=== PATIENT | female | born 1950 | race American Indian/Alaskan Native ===

== ENCOUNTER 2016-11-20 09:26 | Outpatient (CLI) | payer MEDICARE ==
--- NOTE | 2016-11-20 12:06 | Mammography Report ---
DIAGNOSTIC RIGHT MAMMOGRAM: HISTORY: Recall for right asymmetry in MLO projection. FINDINGS: A spot compression image in the MLO projection demonstrates disappearance of the previously noted vague asymmetric density with no suspicious findings. Scattered benign calcifications are noted. IMPRESSION: No suspicious findings. BI-RADS CATEGORY: 1 = Negative ACR BI-RADS MAMMOGRAPHIC CODES: 0 = Needs additional imaging evaluation; 1 = Negative; 2 = Benign; 3 = Probably benign; 4 = Suspicious; 5 = Malignant; 6 = Known biopsy-proven malignancy COMMENT: 1. Dense breast tissue, i.e., adenosis, fibrocystic changes, etc., may obscure an underlying neoplasm. 2. Approximately 10% of cancers are not detected with mammography. 3. A negative mammography report should not delay biopsy if a clinically suspicious mass is present. RECOMMENDATION: Annual screening.
== END 2016-11-20 09:27 | disposition home or self-care (01) ==
LOC: SPVWC 09:26
PROVIDERS: ATTEND Family Medicine
DX: R92.1 Mammographic calcification found on diagnostic imaging of breast (principal); R92.8 Other abnormal and inconclusive findings on diagnostic imaging of breast
CPT/HCPCS: G0206-RT

== ENCOUNTER 2017-01-26 21:00 | Emergency (ER) | payer MEDICARE ==
[2017-01-27] MEDS ORDERED: TORADOL IM ONE (02:05)
[2017-01-27] MEDS ORDERED: FLEXERIL PO ONE (02:05)
--- NOTE | 2017-01-27 02:05 | Emergency Department Report ---
HPI - General Chief Complaint: Back Pain/Injury Time Seen by Provider: 01/27/17 01:28 - HPI HPI: Patient is a 66-year-old female who presents to ED complaining of right foot pain times today. She states she was [employer] earlier this afternoon when she sat on the chair and the chair gave out and she fell on her butt. She says she went home and put some heat on her butt and didn't have any relief so she decided coming to the ED .Patient discussed pain as throbbing in nature and localized to her right buttock region. Patient denies fever/chills/nausea/vomiting/abdominal pain/chest pain/any other problems. ED Past Medical Hx - Past Medical History Hx Hypertension: Yes Hx Congestive Heart Failure: No Hx Diabetes: Yes Hx Asthma: Yes Hx COPD: No Additional medical history: sarcoidosis - Social History Smoking Status: Never Smoker Substance Use Type: None - Medications Home Medications: Home Medications Medication Instructions Recorded Confirmed Last Taken Type Citalopram [Celexa] 20 mg PO DAILY 03/10/14 03/10/14 Unknown History Hydrochlorothiazide 25 mg PO DAILY 03/10/14 03/10/14 Unknown History Hydroxychloroquine [Plaquenil] 200 mg PO BID 03/10/14 03/10/14 Unknown History Metoprolol [Lopressor TAB] 50 mg PO DAILY 03/10/14 03/10/14 Unknown History Prednisone [predniSONE ([place]) ER 5 mg PO BID 03/10/14 03/10/14 Unknown History TAB] metFORMIN [Glucophage] 500 mg PO BID 03/10/14 03/10/14 Unknown History Aspirin [Aspirin BABY CHEW TAB] 81 mg PO QDAY #30 tab.chew 03/11/14 Unknown Rx Azithromycin [Zithromax Z-YAMILETH] 250 mg PO DAILY #6 tablet 03/11/14 Unknown Rx Omeprazole Magnesium [Prilosec Otc] 20 mg PO BID #60 tab 03/11/14 Unknown Rx methOCARBAMOL [Robaxin TAB] 500 mg PO BID #12 tab 01/27/17 Unknown Rx traMADol [Ultram 50 MG tab] 50 mg PO TID PRN #24 tablet 01/27/17 Unknown Rx ED Review of Systems ROS: Stated complaint: FALL/LOWER BACK PAIN Other details as noted in HPI Constitutional: denies: chills, fever Eyes: denies: eye pain, eye discharge, vision change ENT: denies: ear pain, throat pain Respiratory: denies: cough, shortness of breath, wheezing Cardiovascular: denies: chest pain, palpitations Endocrine: no symptoms reported Gastrointestinal: denies: abdominal pain, nausea, diarrhea Genitourinary: denies: urgency, dysuria, discharge Musculoskeletal: myalgia (of buttock). denies: back pain, joint swelling, arthralgia Skin: denies: rash, lesions Neurological: denies: headache, weakness, paresthesias Psychiatric: denies: anxiety, depression Hematological/Lymphatic: denies: easy bleeding, easy bruising Physical Exam - Physical Exam Vital Signs: Vital Signs 01/26/17 21:40 Temperature 98.4 F Pulse Rate 94 H Respiratory 18 Rate Blood Pressure 159/83 O2 Sat by Pulse 100 Oximetry Physical Exam: GENERAL: Alert and oriented x3, no apparent distress, Normal Gait, atraumatic. HEAD: Head is normocephalic and a-traumatic. MOUTH:Mouth is well hydrated and without lesions. Patent airways. NECK: Supple. Non edematous, No carotid bruits. No lymphadenopathy or thyromegaly. LUNGS: Symetrical with respiration, No wheezing, no rales or crackles, CTAB. HEART: S1, S2 present, regular rate and rhythm without murmur, no rubs, no gallops. EXTREMITIES/MUSCULOSKELETAL: No cyanosis, clubbing, rash, lesions or edema. Full ROM bilaterally. UE/LE Pulses 2+ bilaterally. LE and UE 5+ strength bilaterally BACK: No spinal tenderness. Tenderness to palpation right maximum gluteus muscle. Patient able to bend and touch her toes. NEUROLOGIC: No focal Deficit, Cranial nerves II through XII are grossly intact. No loss of sensation, N SKIN: Warm and dry, No lesions, No ulceration or induration present. ED Course Vital Signs 01/26/17 21:40 Temperature 98.4 F Pulse Rate 94 H Respiratory 18 Rate Blood Pressure 159/83 O2 Sat by Pulse 100 Oximetry ED Medical Decision Making - Medical Decision Making 66-year-old female presents with right buttock pain secondary to fall. Patient is alert and oriented 3 as no other complaints ED course: Patient received Toradol and Flexeril in the ED. Discussed with patient continues heat application to her right gluteus ramu muscle 3 Times a day. discussed the patient to follow-up with her primary care physician. Discussed the patient take medication as prescribed. Vital signs are stable patient is in no acute or respiratory distress. She verbally states she'll follow-up and follow-up with her primary care. Critical care attestation.: If time is entered above; I have spent that time in minutes in the direct care of this critically ill patient, excluding procedure time. ED Disposition Clinical Impression: Myalgia Fall Qualifiers: Encounter type: initial encounter Qualified Code(s): W19.XXXA - Unspecified fall, initial encounter Disposition: DISCHARGED TO HOME OR SELFCARE Is pt being admited?: No Does the pt Need Aspirin: No Condition: Stable Instructions: Musculoskeletal Pain (ED), Trigger Point Pain (ED), Osteoarthritis (ED) Prescriptions: methOCARBAMOL [Robaxin TAB] 500 mg PO BID #12 tab traMADol [Ultram 50 MG tab] 50 mg PO TID PRN #24 tablet PRN Reason: Pain Referrals: PRIMARY CARE, [Primary Care Provider] - 3-5 Days Forms: Work/School Release Form, Accompanied Note Time of Disposition: 02:21
[2017-01-27 02:33] VITALS: BP 142/89
== END 2017-01-27 02:33 | disposition home or self-care (01) ==
LOC: ED 21:00
DX: M79.1 Myalgia (principal); I10 Essential (primary) hypertension; E11.9 Type 2 diabetes mellitus without complications
CPT/HCPCS: 96372; 99282; J1885

== ENCOUNTER 2019-04-18 12:01 | Emergency (ER) | payer MEDICARE ==
[2019-04-18] MEDS ORDERED: NACL 0.9% 1000 ML 1,000 ML IV ONE ×2 (13:04→14:15)
[2019-04-18] MEDS ORDERED: ZOFRAN IV ONE ×2 (13:04→16:43)
[2019-04-18] MEDS ORDERED: DILAUDID IV ONE ×2 (13:04→17:35)
[2019-04-18] MEDS ORDERED: DUONEB *Not for PRN Use IH ONE (13:05)
--- NOTE | 2019-04-18 13:09 | Emergency Department Report ---
ED N/V/D HPI - General Chief complaint: Weakness Stated complaint: WEAKNESS/GENERAL SICKNESS Time Seen by Provider: 04/18/19 12:42 Source: patient, EMS Mode of arrival: Stretcher Limitations: No Limitations - History of Present Illness Initial comments: 68-year-old female with a past medical history of asthma, diabetes, hypertension, chronic back pain and sarcoidosis presents to the hospital complains of poor by mouth tolerance 1 week due to nausea and vomiting. Patient has been nauseated with repeated episodes of dry heaving for the past week. Symptoms started 2 days after receiving a epidural for chronic back pain. Patient thinks she was injected with steroids. This is her first epidural since 2010. She contacted the doctor who performed his procedure and was told that her symptoms are not due to side effects of this medication. Patient complained of some generalized abdominal pain which has since resolved. She denies diarrhea, fever, dysuria, melena, hematochezia, or hematemesis patient has had a hysterectomy and hernia repair ? Umbilical. She also complains of ongoing chronic lower back pain worse on the right side at this time. No complaints of worsening leg weakness or urinary incontinence. Patient is currently on by mouth steroids prescribed by her doctor. - Related Data Home Medications Medication Instructions Recorded Confirmed Last Taken Citalopram [Celexa] 20 mg PO DAILY 03/10/14 03/10/14 Unknown Hydroxychloroquine [Plaquenil] 200 mg PO BID 03/10/14 03/10/14 Unknown Metoprolol [Lopressor TAB] 50 mg PO DAILY 03/10/14 03/10/14 Unknown Prednisone [predniSONE ([place]) ER 5 mg PO BID 03/10/14 03/10/14 Unknown TAB] hydroCHLOROthiazide 25 mg PO DAILY 03/10/14 03/10/14 Unknown [Hydrochlorothiazide] metFORMIN [Glucophage] 500 mg PO BID 03/10/14 03/10/14 Unknown Previous Rx's Medication Instructions Recorded Last Taken Type Aspirin [Aspirin BABY CHEW TAB] 81 mg PO QDAY #30 tab.chew 03/11/14 Unknown Rx Azithromycin [Zithromax Z-YAMILETH] 250 mg PO DAILY #6 tablet 03/11/14 Unknown Rx Omeprazole Magnesium [Prilosec Otc] 20 mg PO BID #60 tab 03/11/14 Unknown Rx methOCARBAMOL [Robaxin TAB] 500 mg PO BID #12 tab 01/27/17 Unknown Rx traMADol [Ultram 50 MG tab] 50 mg PO TID PRN #24 tablet 01/27/17 Unknown Rx Azithromycin [Zithromax] 250 mg PO QDAY #6 tablet 04/18/19 Unknown Rx Ondansetron [Zofran Odt] 4 mg PO Q8HR PRN #20 tab.rapdis 04/18/19 Unknown Rx Allergies Allergy/AdvReac Type Severity Reaction Status Date / Time No Known Allergies Allergy Unverified 03/10/14 18:37 ED Review of Systems ROS: Stated complaint: WEAKNESS/GENERAL SICKNESS Other details as noted in HPI Comment: All other systems reviewed and negative ED Past Medical Hx - Past Medical History Previous Medical History?: Yes Hx Hypertension: Yes Hx Congestive Heart Failure: No Hx Diabetes: Yes Hx Asthma: Yes Hx COPD: No Additional medical history: sarcoidosis - Surgical History Past Surgical History?: Yes Additional Surgical History: Hysterectomy - Social History Smoking Status: Former Smoker Substance Use Type: None - Medications Home Medications: Home Medications Medication Instructions Recorded Confirmed Last Taken Type Citalopram [Celexa] 20 mg PO DAILY 03/10/14 03/10/14 Unknown History Hydroxychloroquine [Plaquenil] 200 mg PO BID 03/10/14 03/10/14 Unknown History Metoprolol [Lopressor TAB] 50 mg PO DAILY 03/10/14 03/10/14 Unknown History Prednisone [predniSONE ([place]) ER 5 mg PO BID 03/10/14 03/10/14 Unknown History TAB] hydroCHLOROthiazide 25 mg PO DAILY 03/10/14 03/10/14 Unknown History [Hydrochlorothiazide] metFORMIN [Glucophage] 500 mg PO BID 03/10/14 03/10/14 Unknown History Aspirin [Aspirin BABY CHEW TAB] 81 mg PO QDAY #30 tab.chew 03/11/14 Unknown Rx Azithromycin [Zithromax Z-YAMILETH] 250 mg PO DAILY #6 tablet 03/11/14 Unknown Rx Omeprazole Magnesium [Prilosec Otc] 20 mg PO BID #60 tab 03/11/14 Unknown Rx methOCARBAMOL [Robaxin TAB] 500 mg PO BID #12 tab 01/27/17 Unknown Rx traMADol [Ultram 50 MG tab] 50 mg PO TID PRN #24 tablet 01/27/17 Unknown Rx Azithromycin [Zithromax] 250 mg PO QDAY #6 tablet 04/18/19 Unknown Rx Ondansetron [Zofran Odt] 4 mg PO Q8HR PRN #20 tab.rapdis 04/18/19 Unknown Rx ED Physical Exam - General Limitations: No Limitations - Other Other exam information: General: No limitations, patient is alert in no acute distress Head exam: Atraumatic, normocephalic Eyes exam: Normal appearance, pupils equal reactive to light, extraocular movements intact ENT: Moist mucous membrane, normal oropharynx Neck exam: Normal inspection, full range of motion, no meningismus nontender Respiratory exam: Bilateral mild wheezing, no tachypnea or accessory muscle use Cardiovascular: Normal rate and rhythm, normal heart sounds Abdomen: Soft, nondistended, mild generalized abdominal tenderness, increased bowel sounds, with normal bowel sounds, no rebound, or guarding Extremity: Full range of motion normal inspection no deformity Back: Normal Inspection, full range of motion, no tenderness Neurologic: Alert, oriented x3, cranial nerves intact, no motor or sensory deficit Psychiatric: normal affect, normal mood Skin: Warm, dry, intact ED Course Vital Signs 04/18/19 04/18/19 04/18/19 12:26 13:43 13:53 Temperature 98.2 F Pulse Rate 81 Pulse Rate [ 80 88 Anterior Bilateral Throughout] Respiratory 16 Rate Respiratory 12 16 Rate [Anterior Bilateral Throughout] Blood Pressure Blood Pressure 155/69 [Left] O2 Sat by Pulse 93 Oximetry 04/18/19 04/18/19 04/18/19 14:47 16:57 19:00 Temperature Pulse Rate 83 72 88 Pulse Rate [ Anterior Bilateral Throughout] Respiratory 16 16 18 Rate Respiratory Rate [Anterior Bilateral Throughout] Blood Pressure Blood Pressure 134/59 139/71 142/86 [Left] O2 Sat by Pulse 99 97 98 Oximetry 04/18/19 04/18/19 19:40 21:22 Temperature Pulse Rate 88 82 Pulse Rate [ Anterior Bilateral Throughout] Respiratory 18 Rate Respiratory Rate [Anterior Bilateral Throughout] Blood Pressure 142/86 Blood Pressure 128/76 [Left] O2 Sat by Pulse 99 Oximetry ED Medical Decision Making - Lab Data Result diagrams: 04/18/19 13:18 04/18/19 13:18 Lab Results 04/18/19 04/18/19 04/18/19 Range/Units 13:18 13:18 13:18 WBC 8.4 (4.5-11.0) K/mm3 RBC 4.25 (3.65-5.03) M/mm3 Hgb 11.9 (10.1-14.3) gm/dl Hct 36.0 (30.3-42.9) % MCV 85 (79-97) fl MCH 28 (28-32) pg MCHC 33 (30-34) % RDW 19.2 H (13.2-15.2) % Plt Count 213 (140-440) K/mm3 Lymph % (Auto) 12.7 L (13.4-35.0) % [place] % (Auto) 6.9 (0.0-7.3) % Eos % (Auto) 1.1 (0.0-4.3) % Baso % (Auto) 0.5 (0.0-1.8) % Lymph # 1.1 L (1.2-5.4) K/mm3 [place] # 0.6 (0.0-0.8) K/mm3 Eos # 0.1 (0.0-0.4) K/mm3 Baso # 0.0 (0.0-0.1) K/mm3 Seg Neutrophils % 78.8 H (40.0-70.0) % Seg Neutrophils # 6.6 (1.8-7.7) K/mm3 Sodium 143 (137-145) mmol/L Potassium 4.2 (3.6-5.0) mmol/L Chloride 103.3 (98-107) mmol/L Carbon Dioxide 25 (22-30) mmol/L Anion Gap 19 mmol/L BUN 24 H (7-17) mg/dL Creatinine 1.2 (0.7-1.2) mg/dL Estimated GFR 54 ml/min BUN/Creatinine Ratio 20 % Glucose 87 (65-100) mg/dL Calcium 9.5 (8.4-10.2) mg/dL Magnesium 1.50 L (1.7-2.3) mg/dL Troponin T 0.061 H (0.00-0.029) ng/mL Triglycerides 161 H (2-149) mg/dL Cholesterol 142 (50-199) mg/dL LDL Cholesterol Direct 81 (50-130) mg/dL HDL Cholesterol 37 L (40-59) mg/dL Cholesterol/HDL Ratio 3.83 % Lipase (13-60) units/L Urine Color (Yellow) Urine Turbidity (Clear) Urine pH (5.0-7.0) Ur Specific [place] (1.003-1.030) Urine Protein (Negative) mg/dL Urine Glucose (UA) (Negative) mg/dL Urine Ketones (Negative) mg/dL Urine Blood (Negative) Urine Nitrite (Negative) Urine Bilirubin (Negative) Urine Urobilinogen (<2.0) mg/dL Ur Leukocyte Esterase (Negative) Urine WBC (Auto) (0.0-6.0) /HPF Urine RBC (Auto) (0.0-6.0) /HPF U Epithel Cells (Auto) (0-13.0) /HPF Urine Mucus /HPF 04/18/19 04/18/19 04/18/19 Range/Units 13:18 13:24 15:51 WBC (4.5-11.0) K/mm3 RBC (3.65-5.03) M/mm3 Hgb (10.1-14.3) gm/dl Hct (30.3-42.9) % MCV (79-97) fl MCH (28-32) pg MCHC (30-34) % RDW (13.2-15.2) % Plt Count (140-440) K/mm3 Lymph % (Auto) (13.4-35.0) % [place] % (Auto) (0.0-7.3) % Eos % (Auto) (0.0-4.3) % Baso % (Auto) (0.0-1.8) % Lymph # (1.2-5.4) K/mm3 [place] # (0.0-0.8) K/mm3 Eos # (0.0-0.4) K/mm3 Baso # (0.0-0.1) K/mm3 Seg Neutrophils % (40.0-70.0) % Seg Neutrophils # (1.8-7.7) K/mm3 Sodium (137-145) mmol/L Potassium (3.6-5.0) mmol/L Chloride (98-107) mmol/L Carbon Dioxide (22-30) mmol/L Anion Gap mmol/L BUN (7-17) mg/dL Creatinine (0.7-1.2) mg/dL Estimated GFR ml/min BUN/Creatinine Ratio % Glucose (65-100) mg/dL Calcium (8.4-10.2) mg/dL Magnesium (1.7-2.3) mg/dL Troponin T 0.057 H (0.00-0.029) ng/mL Triglycerides (2-149) mg/dL Cholesterol (50-199) mg/dL LDL Cholesterol Direct (50-130) mg/dL HDL Cholesterol (40-59) mg/dL Cholesterol/HDL Ratio % Lipase 119 H (13-60) units/L Urine Color Yellow (Yellow) Urine Turbidity Slightly-cloudy (Clear) Urine pH 5.0 (5.0-7.0) Ur Specific [place] 1.024 (1.003-1.030) Urine Protein 30 mg/dl (Negative) mg/dL Urine Glucose (UA) Neg (Negative) mg/dL Urine Ketones Neg (Negative) mg/dL Urine Blood Neg (Negative) Urine Nitrite Neg (Negative) Urine Bilirubin Neg (Negative) Urine Urobilinogen < 2.0 (<2.0) mg/dL Ur Leukocyte Esterase Neg (Negative) Urine WBC (Auto) 4.0 (0.0-6.0) /HPF Urine RBC (Auto) 4.0 (0.0-6.0) /HPF U Epithel Cells (Auto) 10.0 (0-13.0) /HPF Urine Mucus Few /HPF - EKG Data -: EKG Interpreted by [facility] EKG shows normal: sinus rhythm, axis (qrs 11), QRS complexes (qrsd 86), ST-T waves (lvh with repol) Rate: normal (82) - EKG Data When compared to previous EKG there are: no significant change (03/10/14) - Radiology Data Radiology results: report reviewed PROCEDURE: XR CHEST 1V AP TECHNIQUE: Chest radiograph single view. HISTORY: wheezing COMPARISONS: None . FINDINGS: Single frontal view of the chest was acquired. There is cardiomegaly. The lungs are hyperinflated. There is increased density at the medial right lung base which could represent atelectasis or pneumonia. There is an left medial basilar linear consolidation likely atelectasis. IMPRESSION: Hyperinflation Right medial basilar consolidation atelectasis versus pneumonia PROCEDURE: CT ABDOMEN PELVIS W CON TECHNIQUE: Computerized axial tomography of the abdomen and pelvis was performed after the administration of IV iodinated nonionic contrast. CT DOSE LENGTH PRODUCT: 1480.8 mGycm HISTORY: abd pain, nv COMPARISONS: None . FINDINGS: Visualized lower thorax: Heart is enlarged. Liver: Normal size and attenuation. Spleen: Normal size and attenuation. Gallbladder and biliary system: Mild intrahepatic and extra hepatic biliary ductal dilatation noted within normal limits for patient's stated age. Gallbladder is unremarkable. Pancreas: Normal. Adrenals: Normal. Kidneys: Kidneys enhance symmetrically with contrast. No obstructing stones visualized. No evidence hydronephrosis. Right renal cyst visualized. GI tract: No evidence of bowel dilatation or obstruction. No CT evidence for appendicitis or diverticulitis. Lymph nodes and mesentery: Normal. Vasculature: Normal.. Bladder: Normal. Reproductive organs: Status post hysterectomy. Peritoneum: No free fluid. Muscu loskeletal structures: Age indeterminate compression fracture of the T12 vertebral body. Other: None. IMPRESSION: No evidence of bowel dilatation or obstruction. No CT evidence for appendicitis or diverticulitis.. - Medical Decision Making No significant lab or CT abnormalities. Patient felt much better after ED treatment including pain, nausea medicine, and IV fluids. Patient states she did not take her blood pressure medicine today. Her heart rate is in normal range and her blood pressure isn't significantly elevated in the ED. Patient takes metoprolol 50 mg extended release and amlodipine. She will be provided metoprolol 50 mg (not extended release) and instructed to restart her meds as scheduled in a.m. pt without cp mild trop elevation stable x 2 without significant ekg changes pt has chronic trop elevation initial wheezing improved after nebs. I called back radiologist and requested a reevaluation and a CAT scan of the pelvis to evaluate for pneumonia given chest x-ray read. Patient signed out to Dr. Holman prescribe antibiotics if positive for pneumonia I review chart the next day and see the addendum that patient does have signs of pneumonia. Dr. Holman did prescribe Z-Yamileth. - Differential Diagnosis gastroenteritis, medication reaction, obstruction, infection Critical Care Time: No Critical care attestation.: If time is entered above; I have spent that time in minutes in the direct care of this critically ill patient, excluding procedure time. ED Disposition Clinical Impression: Nausea and vomiting, Asthma exacerbation, Chronic back pain, Pneumonia Disposition: TO HOME OR SELFCARE Is pt being admited?: No Condition: Stable Instructions: Asthma (ED), Acute Nausea and Vomiting (ED), Bacterial Pneumonia (ED) Additional Instructions: Take the medication as prescribed. Follow up with your doctor or the clinic/doctor provided. Return if symptoms worsen as indicated by your discharge instructions Prescriptions: Azithromycin [Zithromax] 250 mg PO QDAY #6 tablet Ondansetron [Zofran Odt] 4 mg PO Q8HR PRN #20 tab.rapdis PRN Reason: Nausea And Vomiting Referrals: MARIA R VILLASEÑOR MD [Primary Care Provider] - 3-5 Days
[2019-04-18 13:35] LABS: Basophils % (Auto) 0.5 % (0.0-1.8); Eosinophils # (Auto) 0.1 K/mm3 (0.0-0.4); Eosinophils % (Auto) 1.1 % (0.0-4.3); Hemoglobin 11.9 gm/dl (10.1-14.3); Lymphocytes # (Auto) 1.1 K/mm3 (1.2-5.4); Lymphocytes % (Auto) 12.7 % (13.4-35.0); Mean Corpuscular HGB Conc 33 % (30-34); Mean Corpuscular Volume 85 fl (79-97); Monocytes # (Auto) 0.6 K/mm3 (0.0-0.8); Monocytes % (Auto) 6.9 % (0.0-7.3); Platelet Count 213 K/mm3 (140-440); Red Blood Count 4.25 M/mm3 (3.65-5.03); Red Cell Distribution Width 19.2 % (13.2-15.2)
[2019-04-18 13:48] LABS: Bilirubin,Urine NEG (Negative); Blood,Urine NEG (Negative); Color,Urine Yellow (Yellow); Mucus,Urine FEW /HPF; Urobilinogen,Urine < 2.0 mg/dL (<2.0)
[2019-04-18 13:56] LABS: Calcium 9.5 mg/dL (8.4-10.2)
[2019-04-18] MEDS ORDERED: MAGNESIUM SULFATE 2GM/50ML 2 GM/50 ML BAG IV ONE (14:14)
[2019-04-18] MEDS ORDERED: ASPIRIN PO ONE (14:15)
--- NOTE | 2019-04-18 14:21 | XRay Report ---
PROCEDURE: XR CHEST 1V AP TECHNIQUE: Chest radiograph single view. HISTORY: wheezing COMPARISONS: None . FINDINGS: Single frontal view of the chest was acquired. There is cardiomegaly. The lungs are hyperin flated. There is increased density at the medial right lung base which could represent atelectasis or pneumonia. There is an left medial basilar linear consolidation likely atelectasis. IMPRESSION: Hyperinflation Right medial basilar consolidation atelectasis versus pneumonia This document is electronically signed by Michael Mcadams MD., April 18 2019 02:20:14 PM ET
[2019-04-18 14:35] LABS: Chol/HDL Ratio 3.83 %
[2019-04-18] MEDS ORDERED: ZOFRAN ONE (16:46)
--- NOTE | 2019-04-18 18:42 | Cat Scan Report ---
PROCEDURE: CT ABDOMEN PELVIS W CON TECHNIQUE: Computerized axial tomography of the abdomen and pelvis was performed after the administr ation of IV iodinated nonionic contrast. CT DOSE LENGTH PRODUCT: 1480.8 mGycm HISTORY: abd pain, nv COMPARISONS: None . FINDINGS: Visualized lower thorax: Heart is enlarged. Liver: Normal size and attenuation. Spleen: Normal size and attenuation. Gallbladder and biliary system: Mild intrahepatic and extra hepatic biliary ductal dilatation noted w ithin normal limits for patient's stated age. Gallbladder is unremarkable. Pancreas: Normal. Adrenals: Normal. Kidneys: Kidneys enhance symmetrically with contrast. No obstructing stones visualized. No evidence h ydronephrosis. Right renal cyst visualized. GI tract: No evidence of bowel dilatation or obstruction. No CT evidence for appendicitis or divertic ulitis. Lymph nodes and mesentery: Normal. Vasculature: Normal.. Bladder: Normal. Reproductive organs: Status post hysterectomy. Peritoneum: No free fluid. Musculoskeletal structures: Age indeterminate compression fracture of the T12 vertebral body. Other: None. IMPRESSION: No evidence of bowel dilatation or obstruction. No CT evidence for appendicitis or diverticulitis.. Age indeterminate compression fracture of the T12 vertebral body. This document is electronically signed by Bryce Linares MD., April 18 2019 06:40:21 PM ET
[2019-04-18] MEDS ORDERED: LOPRESSOR PO ONE (19:37)
[2019-04-18 21:24] VITALS: BP 128/76
== END 2019-04-18 21:25 | disposition home or self-care (01) ==
LOC: ED 12:01
DX: J45.901 Unspecified asthma with (acute) exacerbation (principal); J18.9 Pneumonia, unspecified organism; G89.29 Other chronic pain; M54.9 Dorsalgia, unspecified; I10 Essential (primary) hypertension; E11.9 Type 2 diabetes mellitus without complications; Z90.710 Acquired absence of both cervix and uterus; Z87.891 Personal history of nicotine dependence; Z79.899 Other long term (current) drug therapy
CPT/HCPCS: 36415; 71045; 74177; 80048; 80061; 81001; 83690; 83735; 84484; 85025; 93005; 93010; 94640; 96361; 96365; 96375; 96376; 99285; J1170; J2405; J3475; J7030; Q9967

== ENCOUNTER 2019-11-29 00:31 | Emergency (ER) | payer MEDICARE ==
[2019-11-29] MEDS ORDERED: HYDROcodone/ACETAMINOPHEN 5-325 MG TAB PO ONE (00:37)
[2019-11-29] MEDS ORDERED: ONDANSETRON 4 MG ODT TAB PO ONE (00:37)
--- NOTE | 2019-11-29 00:43 | Emergency Department Report ---
ED Fall HPI - General Stated Complaint: FALL Time Seen by Provider: 11/29/19 00:36 Source: patient, old records reviewed Mode of arrival: Stretcher Limitations: No Limitations - History of Present Illness Initial Comments: Mrs. House is a 61-year-old female with history of sarcoidosis, femur fracture, hypertension, diabetes mellitus who presents after from [facility] after fall out of while sleeping. She does not recall the incident. She has hematoma right forehead. She has pressure feeling behind her eye. Mild nausea. EMS discovered her back in bed. She does not have any pain in the extremities. MD Complaint: fall -: This evening Fall From: out of bed When Fall Occurred: 1 hour [employer] Fall Witnessed: no Place Fall Occurred: senior care/SNF Loss of Consciousness: unsure Prolonged Down Time?: no Symptoms Prior to Fall: none, other (patient was sleeping) Severity: mild Quality: dull Context: other (fall out of bed while sleeping) Associated Symptoms: headache - Related Data Home Medications Medication Instructions Recorded Confirmed Last Taken Citalopram [Celexa] 20 mg PO DAILY 03/10/14 10/26/19 10/22/19 Hydroxychloroquine [Plaquenil] 200 mg PO BID 03/10/14 10/23/19 Unknown Metoprolol [Lopressor TAB] 50 mg PO DAILY 03/10/14 10/26/19 10/22/19 Prednisone [predniSONE (Marianna) ER 5 mg PO DAILY 03/10/14 10/23/19 Unknown TAB] Previous Rx's Medication Instructions Recorded Last Taken Type Aspirin [Aspirin BABY CHEW TAB] 81 mg PO QDAY #30 tab.chew 03/11/14 10/22/19 Rx Omeprazole Magnesium [PriLOSEC Otc] 20 mg PO BID #60 tab 03/11/14 10/22/19 Rx methOCARBAMOL [Robaxin TAB] 500 mg PO BID #12 tab 01/27/17 10/22/19 Rx traMADoL [Ultram 50 MG tab] 50 mg PO TID PRN #24 tablet 01/27/17 10/22/19 Rx Ondansetron [Zofran ODT TAB] 4 mg PO Q8HR PRN #20 tab.rapdis 04/18/19 Unknown Rx Enoxaparin 40 mg SUB-Q QDAY syringe 01/06/20 Unknown Rx Lispro Insulin [HumaLOG] 0 unit SUB-Q ACHS units 11/02/19 Unknown Rx Magnesium Hydroxide [Milk of 30 ml PO QDAY PRN oral.liqd 11/02/19 Unknown Rx Magnesia] Megestrol Acetate [Megace Es] 625 mg PO BID #1 bottle 11/02/19 Unknown Rx Zolpidem [Ambien] 5 mg PO QHS PRN tablet 11/02/19 Unknown Rx hydrALAZINE [Apresoline TAB] 25 mg PO Q8HR tablet 11/02/19 Unknown Rx lisinopriL [Zestril TAB] 20 mg PO QDAY tablet 11/02/19 Unknown Rx oxyCODONE /ACETAMINOPHEN [Percocet 1 tab PO Q6H PRN #20 tablet 11/02/19 Unknown Rx 5/325 mg] Allergies Allergy/AdvReac Type Severity Reaction Status Date / Time No Known Allergies Allergy Unverified 03/10/14 18:37 ED Review of Systems ROS: Stated complaint: FALL Other details as noted in HPI Constitutional: denies: fever, malaise Eyes: eye pain. denies: vision change Respiratory: denies: cough, shortness of breath Cardiovascular: denies: chest pain Gastrointestinal: nausea. denies: abdominal pain Neurological: headache ED Past Medical Hx - Past Medical History Previous Medical History?: Yes Hx Hypertension: Yes Hx Heart Attack/AMI: No Hx Congestive Heart Failure: No Hx Diabetes: Yes Hx Deep Vein Thrombosis: No Hx Pulmonary Embolism: No Hx Liver Disease: No Hx Renal Disease: No Hx Sickle Cell Disease: No Hx Arthritis: No Hx Seizures: No Hx Kidney Stones: No Hx Asthma: Yes Hx COPD: No Hx Tuberculosis: No Hx Dementia: No Hx HIV: No Additional medical history: Sarcoidosis; Degenerative Disk Disease - Surgical History Past Surgical History?: Yes Hx Coronary Stent: No Hx Open Heart Surgery: No Hx Pacemaker: No Hx Internal Defibrillator: No Hx Cholecystectomy: No Hx Appendectomy: No Hx Breast Surgery: No Additional Surgical History: Hysterectomy, left hip surgery - Social History Smoking Status: Never Smoker - Medications Home Medications: Home Medications Medication Instructions Recorded Confirmed Last Taken Type Citalopram [Celexa] 20 mg PO DAILY 03/10/14 10/26/19 10/22/19 History Hydroxychloroquine [Plaquenil] 200 mg PO BID 03/10/14 10/23/19 Unknown History Metoprolol [Lopressor TAB] 50 mg PO DAILY 03/10/14 10/26/19 10/22/19 History Prednisone [predniSONE (Marianna) ER 5 mg PO DAILY 03/10/14 10/23/19 Unknown History TAB] Aspirin [Aspirin BABY CHEW TAB] 81 mg PO QDAY #30 tab.chew 03/11/14 10/26/19 10/22/19 Rx Omeprazole Magnesium [PriLOSEC Otc] 20 mg PO BID #60 tab 03/11/14 10/26/19 10/22/19 Rx methOCARBAMOL [Robaxin TAB] 500 mg PO BID #12 tab 01/27/17 10/26/19 10/22/19 Rx traMADoL [Ultram 50 MG tab] 50 mg PO TID PRN #24 tablet 01/27/17 10/26/19 10/22/19 Rx Ondansetron [Zofran ODT TAB] 4 mg PO Q8HR PRN #20 tab.rapdis 04/18/19 10/23/19 Unknown Rx Enoxaparin 40 mg SUB-Q QDAY syringe 11/02/19 Unknown Rx Lispro Insulin [HumaLOG] 0 unit SUB-Q ACHS units 11/02/19 Unknown Rx Magnesium Hydroxide [Milk of 30 ml PO QDAY PRN oral.liqd 11/02/19 Unknown Rx Magnesia] Megestrol Acetate [Megace Es] 625 mg PO BID #1 bottle 11/02/19 Unknown Rx Zolpidem [Ambien] 5 mg PO QHS PRN tablet 11/02/19 Unknown Rx hydrALAZINE [Apresoline TAB] 25 mg PO Q8HR tablet 11/02/19 Unknown Rx lisinopriL [Zestril TAB] 20 mg PO QDAY tablet 11/02/19 Unknown Rx oxyCODONE /ACETAMINOPHEN [Percocet 1 tab PO Q6H PRN #20 tablet 11/02/19 Unknown Rx 5/325 mg] ED Physical Exam - General General appearance: alert, in no apparent distress - Head Head exam: Present: normocephalic, other (small right forehead hematoma) - Eye Eye exam: Present: normal appearance, PERRL, periorbital swelling. Absent: scleral icterus, conjunctival injection, periorbital tenderness - ENT ENT exam: Present: mucous membranes moist - Neck Neck exam: Present: normal inspection, full ROM - Respiratory Respiratory exam: Present: normal lung sounds bilaterally. Absent: respiratory distress, wheezes, rales, rhonchi - Cardiovascular Cardiovascular Exam: Present: regular rate, normal rhythm, normal heart sounds. Absent: rubs, gallop - GI/Abdominal GI/Abdominal exam: Present: soft, normal bowel sounds. Absent: distended, tenderness, guarding, rebound - Extremities Exam Extremities exam: Present: normal inspection - Back Exam Back exam: Present: normal inspection, full ROM. Absent: tenderness, CVA tenderness (R), CVA tenderness (L), muscle spasm - Neurological Exam Neurological exam: Present: alert, oriented X3 - Psychiatric Psychiatric exam: Present: normal affect, normal mood - Skin Skin exam: Present: warm, dry, intact, normal color. Absent: rash ED Course Vital Signs 11/29/19 00:54 Temperature 97.9 F Pulse Rate 92 H Respiratory 18 Rate Blood Pressure 174/87 [Right] O2 Sat by Pulse 95 Oximetry ED Medical Decision Making - Radiology Data Radiology results: report reviewed CT cervical spine without acute abnormality there is degenerative disc disease multilevel discogenic CT face right frontal scalp hematoma no intracranial abnormality or fracture CT head - Medical Decision Making fall out of bed, facial contusion, closed head injury CT head and CT cervical spine CT face without acute traumatic injury. As I removed the cervical collar patient did not have any cervical tenderness. She has full range of motion in neck with out pain Discharge back to correction home Critical care attestation.: If time is entered above; I have spent that time in minutes in the direct care of this critically ill patient, excluding procedure time. ED Disposition Clinical Impression: Facial contusion, Closed head injury Disposition: DC-01 TO HOME OR SELFCARE Is pt being admited?: No Does the pt Need Aspirin: No Condition: Stable Instructions: Minor Head Injury (ED) Referrals: PRIMARY CARE, [Primary Care Provider] - 3-5 Days
[2019-11-29 01:08] VITALS: BP 174/87
--- NOTE | 2019-11-29 01:58 | Cat Scan Report ---
CT head without contrast HISTORY: fall out of bed. TECHNIQUE: Axial imaging performed from the skull apex through the skull base without the use of con trast. All CT scans at this location are performed using CT dose reduction for ALARA by means of aut omated exposure control. COMPARISON: None FINDINGS: Parenchyma: No acute intracranial hemorrhage or parenchymal abnormality. Calcifications in the right cerebellum are of uncertain clinical significance but likely reflect chronic changes. Ventricles: There is mild diffuse brain atrophy with commensurate ventricular enlargement which is l ikely age appropriate. Soft tissues: Small right frontal hematoma is present. Bones: No acute osseous abnormality. Sinuses: Complete opacification of the maxillary sinuses, right sphenoid sinus, and some of the ethm oid air cells with mild mucoperiosteal reactive change suggesting chronicity. IMPRESSION: 1. Small right frontal scalp hematoma. No acute intracranial abnormality or fracture. 2. Additional incidental findings as above including chronic-appearing paranasal sinus disease. Signer Name: Reynaldo Escoto MD Signed: 11/29/2019 1:54 AM Workstation Name: [id number]
--- NOTE | 2019-11-29 02:02 | Cat Scan Report ---
CT cervical spine without contrast INDICATION: fall out of bed. TECHNIQUE: Axial imaging performed through the cervical spine without the use of contrast. Sagittal and coronal reconstructed images were also reviewed. All CT scans at this location are performed us ing CT dose reduction for ALARA by means of automated exposure control. COMPARISON: None FINDINGS: Alignment: There is 2 mm of retrolisthesis of C5 on C6 with otherwise normal alignment. Bones: There is no acute osseous abnormality. There is multilevel discogenic DJD, with [id number]-[id number] contact at C5/6 and C7/T1. Soft tissues: No acute incidental soft tissue findings. There is dense atherosclerotic calcification in both carotid bulbs and findings of interstitial disease in the lung apices with fairly diffuse in terstitial thickening and scattered nodularity as well as patchy airspace disease greatest in the rig ht upper lobe. IMPRESSION: 1. No acute abnormality identified. 2. Incidental pulmonary findings as above could be seen with an atypical infectious/inflammatory proc ess such as mycobacterial disease. Correlate with the history. Signer Name: Reynaldo Escoto MD Signed: 11/29/2019 1:57 AM Workstation Name: [id number]
== END 2019-11-29 02:39 | disposition home or self-care (01) ==
LOC: ED 00:31
DX: S00.83XA Contusion of other part of head, initial encounter (principal); S09.90XA Unspecified injury of head, initial encounter; I10 Essential (primary) hypertension; E11.9 Type 2 diabetes mellitus without complications; J45.909 Unspecified asthma, uncomplicated; Z90.710 Acquired absence of both cervix and uterus; Z98.890 Other specified postprocedural states; Z79.899 Other long term (current) drug therapy; X58.XXXA Exposure to other specified factors, initial encounter; Y93.89 Activity, other specified; Y92.89 Other specified places as the place of occurrence of the external cause; Y99.8 Other external cause status
CPT/HCPCS: 70450; 70486; 72125; Q0162

== ENCOUNTER 2022-02-13 16:26 | Inpatient (IN) | payer MEDICARE ==
[2022-02-13] MEDS ORDERED: MORPHINE 4 MG/1 ML INJ IV ONE (18:28)
[2022-02-13] MEDS ORDERED: METOCLOPRAMIDE 10 MG/2 ML INJ IV ONE (18:29)
--- NOTE | 2022-02-13 18:35 | Emergency Department Report ---
ED General Adult HPI - General Chief complaint: Nausea/Vomiting/Diarrhea Stated complaint: NAUSEA/VOMITING Time Seen by Provider: 02/13/22 18:17 Source: EMS Mode of arrival: Stretcher Limitations: No Limitations - History of Present Illness Initial comments: Patient presents with complaints of middle upper abdominal pain, sharp, radiating to back, 8/10, not worsened or relieved by anything. Endorses nausea, non bloody, non bilious vomiting. Last BM yesterday and formed. Endorses flatulence. Denies dysuria, frequency, urgency, vaginal bleeding, discharge. Severity scale (0 -10): 4 - Related Data Home Medications Medication Instructions Recorded Confirmed Last Taken Citalopram [Celexa] 20 mg PO DAILY 03/10/14 02/14/22 10/22/19 Prednisone [predniSONE (Marianna) ER 5 mg PO DAILY 03/10/14 02/14/22 Unknown TAB] Apixaban [Eliquis] 5 mg PO BID 02/14/22 02/14/22 Unknown Ascorbic Acid [Vitamin C] 1,000 mg PO QDAY 02/14/22 02/14/22 Unknown AtorvaSTATin [Lipitor] 10 mg PO QHS 02/14/22 02/14/22 Unknown Cholecalciferol (Vitamin D3) 2,000 unit PO QDAY 02/14/22 02/14/22 Unknown [Vitamin D3 2,000 UNIT CHEW TAB] Fluticasone Propion/Salmeterol 1 each IH QDAY 02/14/22 02/14/22 Unknown [Fluticasone-Salmeterol 100-50] HYDROcodone/APAP 10-325 [Maybell 1 each PO BID PRN 02/14/22 02/14/22 Unknown 10/325] Levothyroxine [Synthroid] 50 mcg PO QAM 02/14/22 02/14/22 Unknown Lidocaine/Prilocaine 5 gm TP QDAY PRN 02/14/22 02/14/22 Unknown [Lidocaine-Prilocaine Cream] Potassium Chloride 10 meq PO QDAY 02/14/22 02/14/22 Unknown amLODIPine [Norvasc] 5 mg PO DAILY 02/14/22 02/14/22 Unknown buPROPion HCL [Bupropion Xl] 150 mg PO QDAY 02/14/22 02/14/22 Unknown Previous Rx's Medication Instructions Recorded Last Taken Type Omeprazole Magnesium [PriLOSEC Otc] 20 mg PO BID #60 tab 03/11/14 10/22/19 Rx Ondansetron [Zofran ODT TAB] 4 mg PO Q8HR PRN #20 tab.rapdis 04/18/19 Unknown Rx Allergies Allergy/AdvReac Type Severity Reaction Status Date / Time No Known Allergies Allergy Verified 02/14/22 12:24 ED Review of Systems ROS: Stated complaint: NAUSEA/VOMITING Other details as noted in HPI Comment: All other systems reviewed and negative Constitutional: denies: chills, fever ED Past Medical Hx - Past Medical History Hx Hypertension: Yes Hx Heart Attack/AMI: No Hx Congestive Heart Failure: No Hx Diabetes: Yes Hx Deep Vein Thrombosis: No Hx Pulmonary Embolism: No Hx Liver Disease: No Hx Renal Disease: No Hx of Cancer: Yes (lung) Hx Sickle Cell Disease: No Hx Arthritis: No Hx Seizures: No Hx Kidney Stones: No Hx Asthma: Yes Hx COPD: No Hx Tuberculosis: No Hx Dementia: No Hx HIV: No Additional medical history: Sarcoidosis; Degenerative Disk Disease - Surgical History Hx Coronary Stent: No Hx Open Heart Surgery: No Hx Pacemaker: No Hx Internal Defibrillator: No Hx Cholecystectomy: No Hx Appendectomy: No Hx Breast Surgery: No Additional Surgical History: Hysterectomy, left hip surgery - Social History Smoking Status: Never Smoker - Medications Home Medications: Home Medications Medication Instructions Recorded Confirmed Last Taken Type Citalopram [Celexa] 20 mg PO DAILY 03/10/14 02/14/22 10/22/19 History Prednisone [predniSONE (M[place]na) ER 5 mg PO DAILY 03/10/14 02/14/22 Unknown History TAB] Omeprazole Magnesium [PriLOSEC Otc] 20 mg PO BID #60 tab 03/11/14 02/14/22 10/22/19 Rx Ondansetron [Zofran ODT TAB] 4 mg PO Q8HR PRN #20 tab.rapdis 04/18/19 02/14/22 Unknown Rx Apixaban [Eliquis] 5 mg PO BID 02/14/22 02/14/22 Unknown History Ascorbic Acid [Vitamin C] 1,000 mg PO QDAY 02/14/22 02/14/22 Unknown History AtorvaSTATin [Lipitor] 10 mg PO QHS 02/14/22 02/14/22 Unknown History Cholecalciferol (Vitamin D3) 2,000 unit PO QDAY 02/14/22 02/14/22 Unknown History [Vitamin D3 2,000 UNIT CHEW TAB] Fluticasone Propion/Salmeterol 1 each IH QDAY 02/14/22 02/14/22 Unknown History [Fluticasone-Salmeterol 100-50] HYDROcodone/APAP 10-325 [Maybell 1 each PO BID PRN 02/14/22 02/14/22 Unknown History 10/325] Levothyroxine [Synthroid] 50 mcg PO QAM 02/14/22 02/14/22 Unknown History Lidocaine/Prilocaine 5 gm TP QDAY PRN 02/14/22 02/14/22 Unknown History [Lidocaine-Prilocaine Cream] Potassium Chloride 10 meq PO QDAY 02/14/22 02/14/22 Unknown History amLODIPine [Norvasc] 5 mg PO DAILY 02/14/22 02/14/22 Unknown History buPROPion HCL [Bupropion Xl] 150 mg PO QDAY 02/14/22 02/14/22 Unknown History ED Physical Exam - General Limitations: No Limitations General appearance: alert, in no apparent distress - Head Head exam: Present: atraumatic, normocephalic - Eye Eye exam: Present: PERRL, EOMI - ENT ENT exam: Present: mucous membranes moist, other (airway patent) - Neck Neck exam: Present: other (supple; no JVD) - Respiratory Respiratory exam: Present: other (good air entry, nml I:E, CTAB, no use of MARIANA) - Cardiovascular Cardiovascular Exam: Present: regular rate. Absent: rubs, gallop - GI/Abdominal GI/Abdominal exam: Present: soft, other (tender to palpation in epigastric region; no rebound tenderness; no involuntary guarding). Absent: distended - Extremities Exam Extremities exam: Present: full ROM. Absent: calf tenderness - Back Exam Back exam: Present: full ROM. Absent: CVA tenderness (R), CVA tenderness (L) - Neurological Exam Neurological exam: Present: alert, oriented X3, CN II-XII intact. Absent: motor sensory deficit - Skin Skin exam: Present: warm, normal color ED Course Vital Signs 02/13/22 02/13/22 02/13/22 17:13 18:16 18:30 Temperature 98.7 F Pulse Rate 98 H Respiratory 16 Rate Blood Pressure 182/98 Blood Pressure 188/100 [Right] O2 Sat by Pulse 97 96 98 Oximetry 02/13/22 02/13/22 02/13/22 18:46 20:10 20:20 Temperature Pulse Rate Respiratory Rate Blood Pressure 182/98 114/70 114/70 Blood Pressure [Right] O2 Sat by Pulse 97 91 91 Oximetry 02/13/22 02/13/22 02/13/22 20:30 20:40 20:50 Temperature Pulse Rate Respiratory Rate Blood Pressure 66/40 66/40 66/40 Blood Pressure [Right] O2 Sat by Pulse 89 90 91 Oximetry 02/13/22 02/13/22 02/13/22 21:00 21:10 21:20 Temperature Pulse Rate Respiratory Rate Blood Pressure 86/51 86/51 86/51 Blood Pressure [Right] O2 Sat by Pulse 91 87 91 Oximetry 02/13/22 02/13/22 02/13/22 21:30 21:40 21:50 Temperature Pulse Rate Respiratory Rate Blood Pressure 101/63 101/63 101/63 Blood Pressure [Right] O2 Sat by Pulse 89 91 94 Oximetry 02/13/22 02/13/22 02/13/22 22:00 22:10 22:20 Temperature Pulse Rate Respiratory Rate Blood Pressure 96/63 96/63 96/63 Blood Pressure [Right] O2 Sat by Pulse 100 99 98 Oximetry 02/13/22 02/13/22 02/13/22 22:30 22:40 22:50 Temperature Pulse Rate Respiratory Rate Blood Pressure 105/64 105/64 105/64 Blood Pressure [Right] O2 Sat by Pulse 99 99 99 Oximetry 02/13/22 02/13/22 02/13/22 23:00 23:20 23:30 Temperature Pulse Rate Respiratory Rate Blood Pressure 123/74 123/74 123/63 Blood Pressure [Right] O2 Sat by Pulse 99 91 99 Oximetry 02/13/22 02/13/22 02/14/22 23:40 23:50 00:00 Temperature Pulse Rate Respiratory Rate Blood Pressure 123/63 123/63 124/68 Blood Pressure [Right] O2 Sat by Pulse 99 99 99 Oximetry 02/14/22 02/14/22 02/14/22 00:10 00:20 00:30 Temperature Pulse Rate Respiratory Rate Blood Pressure 124/68 124/68 117/63 Blood Pressure [Right] O2 Sat by Pulse 99 99 98 Oximetry 02/14/22 02/14/22 02/14/22 00:40 00:50 01:00 Temperature Pulse Rate Respiratory Rate Blood Pressure 117/63 117/63 115/72 Blood Pressure [Right] O2 Sat by Pulse 100 100 99 Oximetry 02/14/22 02/14/22 02/14/22 01:10 01:20 01:30 Temperature Pulse Rate Respiratory Rate Blood Pressure 115/72 115/72 125/70 Blood Pressure [Right] O2 Sat by Pulse 99 99 99 Oximetry 02/14/22 02/14/22 02/14/22 01:40 01:50 02:00 Temperature Pulse Rate Respiratory Rate Blood Pressure 125/70 125/70 130/74 Blood Pressure [Right] O2 Sat by Pulse 99 100 99 Oximetry 02/14/22 02/14/22 02/14/22 02:10 02:20 02:30 Temperature Pulse Rate Respiratory Rate Blood Pressure 130/74 130/74 142/83 Blood Pressure [Right] O2 Sat by Pulse 99 100 100 Oximetry 02/14/22 02/14/22 02/14/22 02:40 02:50 03:00 Temperature Pulse Rate Respiratory Rate Blood Pressure 142/83 142/83 142/82 Blood Pressure [Right] O2 Sat by Pulse 100 99 92 Oximetry 02/14/22 02/14/22 02/14/22 03:10 03:20 03:30 Temperature Pulse Rate Respiratory Rate Blood Pressure 142/82 142/82 138/74 Blood Pressure [Right] O2 Sat by Pulse 91 92 88 Oximetry 02/14/22 02/14/22 02/14/22 03:40 03:50 04:00 Temperature Pulse Rate Respiratory Rate Blood Pressure 138/74 138/74 162/95 Blood Pressure [Right] O2 Sat by Pulse 88 98 99 Oximetry 02/14/22 02/14/22 02/14/22 04:10 04:20 04:41 Temperature 98.8 F Pulse Rate 90 Respiratory 20 Rate Blood Pressure 162/95 162/95 126/67 Blood Pressure [Right] O2 Sat by Pulse 98 98 99 Oximetry ED Medical Decision Making - Lab Data Result diagrams: 02/13/22 18:16 02/13/22 18:16 Laboratory Tests 02/13/22 02/13/22 18:16 18:16 WBC 9.6 RBC 4.27 Hgb 12.0 Hct 37.9 MCV 89 MCH 28 MCHC 32 RDW 16.6 H Plt Count 217 Lymph % (Auto) 7.8 L Story % (Auto) 5.1 Eos % (Auto) 0.5 Baso % (Auto) 0.7 Lymph # (Auto) 0.7 L Story # (Auto) 0.5 Eos # (Auto) 0.0 Baso # (Auto) 0.1 Seg Neutrophils % 85.9 H Seg Neutrophils # 8.2 H Sodium 139 Potassium 4.5 Chloride 97.9 L Carbon Dioxide 21 L Anion Gap 25 BUN 29 H Creatinine 1.2 Estimated GFR 54 BUN/Creatinine Ratio 24 Glucose 154 H Calcium 11.2 H Total Bilirubin 0.50 AST 36 ALT 43 Alkaline Phosphatase 292 H Troponin T 0.019 Total Protein 8.1 Albumin 3.6 L Albumin/Globulin Ratio 0.[address] abd/pelvis: tree in bud appearance changes in basal lungs; cholelithiasis RUQ US: distended gallbladder with possible debris; no wall thickening or per - Medical Decision Making likely 2/2 basal pneumonia. Acute cholecystitis less likely. Pancreatitis ruled out. ACs unlikely. Dr. Campbell (gen surg) consulted. Recommends admitting to Medicine. Will see patient in consultation. Critical care attestation.: If time is entered above; I have spent that time in minutes in the direct care of this critically ill patient, excluding procedure time. ED Disposition Clinical Impression: Epigastric pain, Pulmonary infiltrates Disposition: ADMITTED INPATIENT Is pt being admited?: Yes Does the pt Need Aspirin: No Condition: Stable Time of Disposition: 00:25 (Patient admitted to Dr. Lambert. Sign out was given by me to the admitting physician.)
[2022-02-13 18:42] LABS: Basophils # (Auto) 0.1 K/mm3 (0.0-0.1); Basophils % (Auto) 0.7 % (0.0-1.8); Eosinophils % (Auto) 0.5 % (0.0-4.3); Hematocrit 37.9 % (30.3-42.9); Lymphocytes # (Auto) 0.7 K/mm3 (1.2-5.4); Lymphocytes % (Auto) 7.8 % (13.4-35.0); Mean Corpuscular HGB Conc 32 % (30-34); Mean Corpuscular Volume 89 fl (79-97); Monocytes # (Auto) 0.5 K/mm3 (0.0-0.8); Monocytes % (Auto) 5.1 % (0.0-7.3); Platelet Count 217 K/mm3 (140-440); Red Blood Count 4.27 M/mm3 (3.65-5.03); Red Cell Distribution Width 16.6 % (13.2-15.2)
[2022-02-13 18:58] LABS: Albumin 3.6 g/dL (3.9-5); Calcium 11.2 mg/dL (8.4-10.2)
--- NOTE | 2022-02-13 23:35 | Cat Scan Report ---
CT ABDOMEN AND PELVIS WITH CONTRAST INDICATION / CLINICAL INFORMATION: abdominal pain. TECHNIQUE: Axial CT images were obtained through the abdomen and pelvis after 100 cc Omnipaque [address] scans at this location are performed using CT dose reduction for ALARA by means of automated exposure control. COMPARISON: None available. FINDINGS: LOWER CHEST: Scattered regions of nodular airspace attenuation some of which demonstrating tree-in-bu d distribution are noted within the lower lobes and right middle lobe. Additionally within the inferi or right upper lobe areas of groundglass attenuation, air space attenuation, and volume loss are demo nstrated. A few of the smaller airways demonstrate bronchial wall thickening within the lower lungs. Partially calcified right hilar structure measuring 20 x 18 mm present image #17. Mild cardiomegaly. No pericardial effusion. LIVER: Subcentimeter foci of hypoattenuation lateral segment left hepatic lobe thought to reflect sma ll cysts. Lesions too small to further characterize. Additional focal hypoattenuation within segment for typical of focal fat. Portal veins are patent. GALLBLADDER: Small stones are suggested dependently within the fundus. No gallbladder wall thickening . The fundus is distended. BILE DUCTS: Common bile duct is distended without obvious choledocholithiasis or obstructing lesion. SPLEEN: No significant abnormality. PANCREAS: No significant abnormality. ADRENALS: No significant abnormality. RIGHT KIDNEY / URETER: 15 mm cyst posterior cortex mid right kidney with slightly larger slightly mor e inferior/lateral cyst measuring 29 mm. LEFT KIDNEY / URETER: Subcentimeter hypodense lesion upper pole left kidney thought to reflect small cysts. 3 mm nonobstructing stone posterior calyx mid left kidney. STOMACH / DUODENUM / SMALL BOWEL: No significant abnormality. COLON: Prior sigmoid resection. APPENDIX: No significant abnormality. PERITONEUM: No free air or free fluid are present within the abdomen or pelvis. LYMPH NODES: No significant adenopathy. AORTA / ARTERIES: Moderate atherosclerotic calcification without acute abnormality. Small penetrating ulcer anterior margin lower abdominal aorta measures up to 5 mm image #86; series #2 mild to moderat e stenosis at the SMA origin. IVC / VEINS: No significant abnormality. URINARY BLADDER: No significant abnormality. REPRODUCTIVE ORGANS: Uterus is absent. No significant adnexal abnormality. ADDITIONAL ABDOMINAL/PELVIC FINDINGS: None. SKELETAL SYSTEM: Prior repair of the left femoral neck. Moderate heterotopic bone. Prior fractures of pubic rami and parasymphyseal pelvis with additional compression deformity of T12 as well as mild de pression superior endplate T10. IMPRESSION: 1. Multiple regions of pulmonary nodular airspace attenuation with tree-in-bud distribution are prese nt with partially calcified structure thought to reflect lymph node right hilum. Differential conside rations include airways disease as well as infectious etiology such as TB, fungal infection, correlat ion recommended. 2. Minimal cholelithiasis with distention of the gallbladder suggested. Other findings as detailed. Signer Name: Luisito Cole II, MD Signed: 02/13/2022 11:30 PM Workstation Name: [id number]
--- NOTE | 2022-02-13 23:53 | Ultrasound Report ---
ULTRASOUND ABDOMEN, LIMITED INDICATION / CLINICAL INFORMATION: epigastric pain. COMPARISON: None available. FINDINGS: PANCREAS: Visualized portion shows no significant abnormality. LIVER: Hyperechoic liver with right hepatic lobe measuring 13 cm. No focal hepatic mass. Normal hepat opedal blood flow in the main portal vein. GALLBLADDER: Gallbladder is distended measuring 11.8 cm. There may be very minimal echogenic debris w ithin the dependent fundus. No wall thickening or pericholecystic fluid. BILE DUCTS: No significant abnormality. Common bile duct measures 3.4 mm mm. FREE FLUID: None. ADDITIONAL FINDINGS: Longitudinal images of the aorta and inferior vena cava demonstrate no significa nt abnormalities. Right kidney measures 8.2 cm craniocaudal dimension and has hyperechoic appearance of the cortex. Cortical thinning measuring 9 mm. Upper and lower pole cysts are demonstrated. Upper p ole cyst measures 1.7 x 1.3 x 1.4 cm. Lower pole cyst measured 3.0 x 2.7 x 2.8 cm. IMPRESSION: 1. Hyperechoic appearance of the liver suggesting hepatic steatosis. 2. Nonspecific distention of the gallbladder without wall thickening or obvious inflammatory changes. 3. Borderline small right kidney with hyperechoic cortex and cortical thinning. Findings suggest sequ elae of medical renal disease. Signer Name: Luisito Cole II, MD Signed: 02/13/2022 11:49 PM Workstation Name: [id number]
[2022-02-14] MEDS ORDERED: DEXTROSE 50% IN WATER (25GM) 50 ML SYRINGE IV PRN (03:29)
[2022-02-14] MEDS ORDERED: ONDANSETRON 4 MG/2 ML INJ IV PRN ×2 (03:29→15:28)
[2022-02-14] MEDS ORDERED: HYDROmorphone 1 MG/1 ML INJ IV PRN (03:29)
[2022-02-14] MEDS ORDERED: ACETAMINOPHEN 325 MG TAB PO PRN (03:29)
--- NOTE | 2022-02-14 05:55 | History and Physical Report ---
History of Present Illness Date of examination: 02/14/22 Date of admission: 02/14/22 03:29 Chief complaint: Nausea vomiting diarrhea Epigastric pain History of present illness: 71 years old female with history of diabetes and asthma, sarcoidosis, degenerative disc disease was brought to the emergency room because of middle upper abdominal pain, sharp, radiating to back, 8/10, not worsened or relieved by anything. Endorses nausea, non bloody, non bilious vomiting. Last BM yesterday and formed. Endorses flatulence. Denies dysuria, frequency, urgency, vaginal bleeding, discharge In the emergency room CT scan of the abdomen pelvis shows multiple regions of pulmonary nodular airspace attenuation with tree-in-bud distribution are present with partially calcified structure throught to reflect lymph node right hilum. Differential consideration include air was disease as well as infectious etiologies such as TB, fungal infection, correlation recommended. Minimal cholelithiasis with distention of the gallbladder suggested We will going to admit the patient Case discussed with surgery will see the patient in consultation we will also consult pulmonary for evaluation Past History Past Medical History: COPD (Sarcoidosis; Degenerative Disk Disease), diabetes Past Surgical History: Other (Hysterectomy, left hip surgery) Social history: no significant social history Family history: no significant family history Medications and Allergies Allergies Allergy/AdvReac Type Severity Reaction Status Date / Time No Known Allergies Allergy Verified 02/13/22 17:14 Home Medications Medication Instructions Recorded Confirmed Last Taken Type Citalopram [Celexa] 20 mg PO DAILY 03/10/14 10/26/19 10/22/19 History Hydroxychloroquine [Plaquenil] 200 mg PO BID 03/10/14 10/23/19 Unknown History Metoprolol [Lopressor TAB] 50 mg PO DAILY 03/10/14 10/26/19 10/22/19 History Prednisone [predniSONE ([place]) ER 5 mg PO DAILY 03/10/14 10/23/19 Unknown History TAB] Aspirin [Aspirin BABY CHEW TAB] 81 mg PO QDAY #30 tab.chew 03/11/14 10/26/19 10/22/19 Rx Omeprazole Magnesium [PriLOSEC Otc] 20 mg PO BID #60 tab 03/11/14 10/26/19 10/22/19 Rx methOCARBAMOL [Robaxin TAB] 500 mg PO BID #12 tab 01/27/17 10/26/19 10/22/19 Rx traMADoL [Ultram 50 MG tab] 50 mg PO TID PRN #24 tablet 01/27/17 10/26/19 10/22/19 Rx Ondansetron [Zofran ODT TAB] 4 mg PO Q8HR PRN #20 tab.rapdis 04/18/19 10/23/19 Unknown Rx Enoxaparin 40 mg SUB-Q QDAY syringe 11/02/19 Unknown Rx Lispro Insulin [HumaLOG] 0 unit SUB-Q ACHS units 11/02/19 Unknown Rx Magnesium Hydroxide [Milk of 30 ml PO QDAY PRN oral.liqd 11/02/19 Unknown Rx Magnesia] Megestrol Acetate [Megace Es] 625 mg PO BID #1 bottle 11/02/19 Unknown Rx Zolpidem [Ambien] 5 mg PO QHS PRN tablet 11/02/19 Unknown Rx hydrALAZINE [Apresoline TAB] 25 mg PO Q8HR tablet 11/02/19 Unknown Rx lisinopriL [Zestril TAB] 20 mg PO QDAY tablet 11/02/19 Unknown Rx oxyCODONE /ACETAMINOPHEN [Percocet 1 tab PO Q6H PRN #20 tablet 11/02/19 Unknown Rx 5/325 mg] Active Meds: Active Medications Acetaminophen (Acetaminophen 325 Mg Tab) 650 mg PO Q4H PRN PRN Reason: Pain MILD(1-3)/Fever >100.5/DEVLIN Azithromycin (Azithromycin 250 Mg Tab) 250 mg PO QDAY [facility]; Protocol Dextrose (Dextrose 50% In Water (25gm) 50 Ml Syringe) 50 ml IV Q30MIN PRN; Protocol PRN Reason: Hypoglycemia Famotidine (Famotidine 20 Mg/2 Ml Inj) 20 mg IV DAILY [facility] Hydralazine HCl (Hydralazine 25 Mg Tab) 25 mg PO Q8HR [facility] Hydromorphone HCl (Hydromorphone 1 Mg/1 Ml Inj) 0.5 mg IV Q3H PRN PRN Reason: Pain , Severe (7-10) Hydroxychloroquine Sulfate (Hydroxychloroquine 200 Mg Tab) 200 mg PO BID [facility] Sodium Chloride (Nacl 0.45% 1000 Ml) 1,000 mls @ 100 mls/hr IV DIRECT [facility] Ceftriaxone Sodium (Rocephin/Ns 2 Gm/100 Ml) 2 gm in 100 mls @ 200 mls/hr IV Q24H [facility]; Protocol Insulin Human Lispro (Insulin Lispro 100 Unit/Ml) 0 unit SUB-Q Q6HR [facility]; Protocol Lisinopril (Lisinopril 20 Mg Tab) 20 mg PO QDAY [facility] Methocarbamol (Methocarbamol 500 Mg Tab) 500 mg PO BID [facility] Metoprolol Tartrate (Metoprolol Tartrate 50 Mg Tab) 50 mg PO DAILY [facility] Morphine Sulfate (Morphine 2 Mg/1 Ml Inj) 2 mg IV Q4H PRN PRN Reason: Pain, Moderate (4-6) Ondansetron HCl (Ondansetron 4 Mg/2 Ml Inj) 4 mg IV Q8H PRN PRN Reason: Nausea And Vomiting Prednisone (Prednisone 5 Mg Tab) 5 mg PO DAILY [facility] Sodium Chloride (Sodium Chloride 0.9% 10 Ml Flush Syringe) 10 ml IV BID [facility] Sodium Chloride (Sodium Chloride 0.9% 10 Ml Flush Syringe) 10 ml IV PRN PRN PRN Reason: LINE FLUSH Review of Systems All systems: negative Gastrointestinal: abdominal pain, nausea, vomiting, diarrhea, other (Epigastric pain) Exam - Constitutional Vitals: Temp Pulse Resp BP Pulse Ox 98.7 F 98 H 16 182/98 97 02/13/22 17:13 02/13/22 17:13 02/13/22 17:13 02/13/22 18:46 02/13/22 18:46 General appearance: Present: no acute distress, well-nourished - EENT Eyes: Present: PERRL ENT: hearing intact, clear oral mucosa - Neck Neck: Present: supple, normal ROM - Respiratory Respiratory effort: normal Respiratory: bilateral: diminished - Cardiovascular Heart Sounds: Present: S1 & S2. Absent: rub, click - Extremities Extremities: pulses symmetrical, No edema Peripheral Pulses: within normal limits - Abdominal General gastrointestinal: Present: soft, non-tender, non-distended, normal bowel sounds Female genitourinary: Present: normal - Integumentary Integumentary: Present: clear, warm, dry - Musculoskeletal Musculoskeletal: gait normal, strength equal bilaterally - Psychiatric Psychiatric: appropriate mood/affect, intact judgment & insight - Neurologic Neurologic: CNII-XII intact, moves all extremities HEART Score - HEART Score Troponin: Troponin T 0.019 ng/mL (0.00-0.029) 02/13/22 18:16 Results - Labs CBC & Chem 7: 02/13/22 18:16 02/13/22 18:16 Labs: Laboratory Last Values WBC 9.6 K/mm3 (4.5-11.0) 02/13/22 18:16 RBC 4.27 M/mm3 (3.65-5.03) 02/13/22 18:16 Hgb 12.0 gm/dl (10.1-14.3) 02/13/22 18:16 Hct 37.9 % (30.3-42.9) 02/13/22 18:16 MCV 89 fl (79-97) 02/13/22 18:16 MCH 28 pg (28-32) 02/13/22 18:16 MCHC 32 % (30-34) 02/13/22 18:16 RDW 16.6 % (13.2-15.2) H 02/13/22 18:16 Plt Count 217 K/mm3 (140-440) 02/13/22 18:16 Lymph % (Auto) 7.8 % (13.4-35.0) L 02/13/22 18:16 [place] % (Auto) 5.1 % (0.0-7.3) 02/13/22 18:16 Eos % (Auto) 0.5 % (0.0-4.3) 02/13/22 18:16 Baso % (Auto) 0.7 % (0.0-1.8) 02/13/22 18:16 Lymph # (Auto) 0.7 K/mm3 (1.2-5.4) L 02/13/22 18:16 [place] # (Auto) 0.5 K/mm3 (0.0-0.8) 02/13/22 18:16 Eos # (Auto) 0.0 K/mm3 (0.0-0.4) 02/13/22 18:16 Baso # (Auto) 0.1 K/mm3 (0.0-0.1) 02/13/22 18:16 Seg Neutrophils % 85.9 % (40.0-70.0) H 02/13/22 18:16 Seg Neutrophils # 8.2 K/mm3 (1.8-7.7) H 02/13/22 18:16 Sodium 139 mmol/L (137-145) 02/13/22 18:16 Potassium 4.5 mmol/L (3.6-5.0) 02/13/22 18:16 Chloride 97.9 mmol/L (98-107) L 02/13/22 18:16 Carbon Dioxide 21 mmol/L (22-30) L 02/13/22 18:16 Anion Gap 25 mmol/L 02/13/22 18:16 BUN 29 mg/dL (7-17) H 02/13/22 18:16 Creatinine 1.2 mg/dL (0.6-1.2) 02/13/22 18:16 Estimated GFR 54 ml/min 02/13/22 18:16 BUN/Creatinine Ratio 24 % 02/13/22 18:16 Glucose 154 mg/dL (65-100) H 02/13/22 18:16 Calcium 11.2 mg/dL (8.4-10.2) H 02/13/22 18:16 Total Bilirubin 0.50 mg/dL (0.1-1.2) 02/13/22 18:16 AST 36 units/L (5-40) 02/13/22 18:16 ALT 43 units/L (7-56) 02/13/22 18:16 Alkaline Phosphatase 292 units/L (35-129) H 02/13/22 18:16 Troponin T 0.019 ng/mL (0.00-0.029) 02/13/22 18:16 Total Protein 8.1 g/dL (6.3-8.2) 02/13/22 18:16 Albumin 3.6 g/dL (3.9-5) L 02/13/22 18:16 Albumin/Globulin Ratio 0.8 % 02/13/22 18:16 Lipase 52 units/L (13-60) 02/13/22 18:16 - Imaging and Cardiology CT scan - chest: report reviewed Assessment and Plan VTE prophylaxis?: Chemical Plan of care discussed with patient/family: Yes - Patient Problems (1) Epigastric pain Current Visit: Yes Status: Acute Plan to address problem: Admit the patient to the medical telemetry. Famotidine 20 mg IV every 12 hours. Reglan 10 mg IV x1 dose. Morphine 2 mg IV every 4 hours as needed. Reconsult surgery for evaluation of cholelithiasis. Recheck CBC CMP in the morning (2) Pulmonary infiltrates Current Visit: Yes Status: Acute Plan to address problem: Oxygen via nasal catheter per minute. DuoNeb via nebulizer every 4 hours. Rocephin 2 g IV daily. Zithromax to 50 mg p.o. daily. Pulmonary consult for evaluation of TV fungal infection (3) Diabetes mellitus Current Visit: No Status: Acute Plan to address problem: Humalog sliding scale with moderate dose coverage. We continue the home medication. Diabetic education (4) History of sarcoidosis Current Visit: No Status: Acute Plan to address problem: Stable. We will continue the home medication. We will also consult pulmonary for evaluation (5) Hypertension Current Visit: No Status: Acute Qualifiers: Hypertension type: essential hypertension Qualified Code(s): I10 - Essentia l (primary) hypertension Plan to address problem: Hydralazine 10 mg IV every 6 hours as needed. Hydralazine 25 mg p.o. every 8 hours. Lisinopril 20 mg p.o. daily (6) DVT prophylaxis Current Visit: No Status: Acute Plan to address problem: SCD for DVT prophylaxis. Famotidine 20 mg IV daily for GI prophylaxis. Patient is a full code
[2022-02-14] MEDS: cefTRIAXone/NS 2 GM/100 ML 2 GM/100 ML BAG IV SCH (07:51)
[2022-02-14] MEDS: hydrALAZINE 25 MG TAB PO SCH ×3 (07:53→21:48)
[2022-02-14] MEDS: SODIUM CHLORIDE 0.45% 1000 ML 1,000 ML IV SCH ×2 (07:56→21:54)
[2022-02-14] MEDS: INSULIN LISPRO 100 UNIT/ML SUB-Q SCH ×3 (07:58→18:45)
[2022-02-14 09:07] LABS: Bilirubin,Urine NEG (Negative); Blood,Urine NEG (Negative); Color,Urine Yellow (Yellow)
[2022-02-14] MEDS: FAMOTIDINE 20 MG/2 ML INJ IV SCH (09:09)
[2022-02-14] MEDS ORDERED: NON-FORMULARY EACH (Prednisone [Prednisone (Rayos) Er Tab] 5 MG Tablet.Dr) PO SCH (10:00)
[2022-02-14] MEDS ORDERED: FAMOTIDINE 20 MG/2 ML INJ IV SCH (10:00)
[2022-02-14] MEDS: METOPROLOL TARTRATE 50 MG TAB PO SCH (10:03)
[2022-02-14] MEDS: LISINOPRIL 20 MG TAB PO SCH (10:03)
--- NOTE | 2022-02-14 10:59 | Electrocardiograph Report ---
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
[2022-02-14] MEDS ORDERED: WATER FOR INJ Sterile (PF) 10 ML ONE (13:25)
[2022-02-14] MEDS ORDERED: SINCALIDE 5 MCG VIAL IV ONE ×2 (13:25→13:30)
[2022-02-14] MEDS ORDERED: WATER FOR INJ Sterile (PF) 10 ML IV ONE (13:30)
--- NOTE | 2022-02-14 13:55 | Consultation ---
History of Present Illness Consult date: 02/14/22 Reason for consult: abdominal pain - History of present illness History of present illness: 71-year-old female was admitted to the hospital with abdominal pain and intractable nausea and vomiting over several days. Patient says she was admitted to the hospital over a month ago for similar symptoms of which she was eventually discharged and she says she was never given an etiology of her symptoms. She says that her right upper quadrant pain she believes is due to persistent retching from the nausea and vomiting. The pain is in the right subcostal/upper quadrant area. Patient had an abdominal ultrasound and CT scan that was fairly unremarkable with the exception of small gallstones and gallbladder distension. Of note there was also seen a right hilar mass. Patient says she was diagnosed with lung cancer last year but she is going through chemo and radiation. Her last treatments were over 4 months ago. She says she recently had a PET scan that showed a lesion on her lumbar spine of which she is supposed have a biopsy next week. Overall patient says that her symptoms have improved compared to on admission. General surgery consulted to evaluate patient for gallbladder disease. Past History Past Medical History: COPD (Sarcoidosis; Degenerative Disk Disease), diabetes, hypertension, other (lung CA, sarcoidosis) Past Surgical History: Other (Hysterectomy, left hip surgery, left arm surgery) Social history: no significant social history Family history: no significant family history Medications and Allergies Allergies Allergy/AdvReac Type Severity Reaction Status Date / Time No Known Allergies Allergy Verified 02/14/22 12:24 Home Medications Medication Instructions Recorded Confirmed Last Taken Type Citalopram [Celexa] 20 mg PO DAILY 03/10/14 02/14/22 10/22/19 History Prednisone [predniSONE ([place]) ER 5 mg PO DAILY 03/10/14 02/14/22 Unknown History TAB] Omeprazole Magnesium [PriLOSEC Otc] 20 mg PO BID #60 tab 03/11/14 02/14/22 10/22/19 Rx Ondansetron [Zofran ODT TAB] 4 mg PO Q8HR PRN #20 tab.rapdis 04/18/19 02/14/22 Unknown Rx Apixaban [Eliquis] 5 mg PO BID 02/14/22 02/14/22 Unknown History Ascorbic Acid [Vitamin C] 1,000 mg PO QDAY 02/14/22 02/14/22 Unknown History AtorvaSTATin [Lipitor] 10 mg PO QHS 02/14/22 02/14/22 Unknown History Cholecalciferol (Vitamin D3) 2,000 unit PO QDAY 02/14/22 02/14/22 Unknown History [Vitamin D3 2,000 UNIT CHEW TAB] Fluticasone Propion/Salmeterol 1 each IH QDAY 02/14/22 02/14/22 Unknown History [Fluticasone-Salmeterol 100-50] HYDROcodone/APAP 10-325 [Latta 1 each PO BID PRN 02/14/22 02/14/22 Unknown History 10/325] Levothyroxine [Synthroid] 50 mcg PO QAM 02/14/22 02/14/22 Unknown History Lidocaine/Prilocaine 5 gm TP QDAY PRN 02/14/22 02/14/22 Unknown History [Lidocaine-Prilocaine Cream] Potassium Chloride 10 meq PO QDAY 02/14/22 02/14/22 Unknown History amLODIPine [Norvasc] 5 mg PO DAILY 02/14/22 02/14/22 Unknown History buPROPion HCL [Bupropion Xl] 150 mg PO QDAY 02/14/22 02/14/22 Unknown History Active Meds: Active Medications Acetaminophen (Acetaminophen 325 Mg Tab) 650 mg PO Q4H PRN PRN Reason: Pain MILD(1-3)/Fever >100.5/DEVLIN Azithromycin (Azithromycin 250 Mg Tab) 500 mg PO QDAY [facility]; Protocol Stop: 02/18/22 10:01 Dextrose (Dextrose 50% In Water (25gm) 50 Ml Syringe) 50 ml IV Q30MIN PRN; Protocol PRN Reason: Hypoglycemia Famotidine (Famotidine 20 Mg/2 Ml Inj) 20 mg IV DAILY [facility] Last Admin: 02/14/22 09:09 Dose: 20 mg Hydralazine HCl (Hydralazine 25 Mg Tab) 25 mg PO Q8HR [facility] Last Admin: 02/14/22 07:53 Dose: 25 mg Hydromorphone HCl (Hydromorphone 1 Mg/1 Ml Inj) 0.5 mg IV Q3H PRN PRN Reason: Pain , Severe (7-10) Hydroxychloroquine Sulfate (Hydroxychloroquine 200 Mg Tab) 200 mg PO BID [facility] Sodium Chloride (Nacl 0.45% 1000 Ml) 1,000 mls @ 100 mls/hr IV DIRECT [facility] Last Admin: 02/14/22 07:56 Dose: 100 mls/hr Ceftriaxone Sodium (Rocephin/Ns 2 Gm/100 Ml) 2 gm in 100 mls @ 200 mls/hr IV Q24H [facility]; Protocol Stop: 02/18/22 06:29 Last Admin: 02/14/22 07:51 Dose: 200 mls/hr Insulin Human Lispro (Insulin Lispro 100 Unit/Ml) 0 unit SUB-Q Q6HR [facility]; Protocol Last Admin: 02/14/22 07:58 Dose: Not Given Lisinopril (Lisinopril 20 Mg Tab) 20 mg PO QDAY [facility] Last Admin: 02/14/22 10:03 Dose: 20 mg Methocarbamol (Methocarbamol 500 Mg Tab) 500 mg PO BID [facility] Metoprolol Tartrate (Metoprolol Tartrate 50 Mg Tab) 50 mg PO DAILY [facility] Last Admin: 02/14/22 10:03 Dose: 50 mg Morphine Sulfate (Morphine 2 Mg/1 Ml Inj) 2 mg IV Q4H PRN PRN Reason: Pain, Moderate (4-6) Ondansetron HCl (Ondansetron 4 Mg/2 Ml Inj) 4 mg IV Q8H PRN PRN Reason: Nausea And Vomiting Last Admin: 02/14/22 10:03 Dose: 4 mg Prednisone (Prednisone 5 Mg Tab) 5 mg PO DAILY [facility] Sodium Chloride (Sodium Chloride 0.9% 10 Ml Flush Syringe) 10 ml IV BID [facility] Last Admin: 02/14/22 09:09 Dose: 10 ml Sodium Chloride (Sodium Chloride 0.9% 10 Ml Flush Syringe) 10 ml IV PRN PRN PRN Reason: LINE FLUSH Review of Systems All systems: negative - Respiratory no cough - Gastrointestinal abdominal pain, nausea, vomiting Exam Vital Signs Temp Pulse Resp BP Pulse Ox 98.7 F 98 H 16 188/100 97 02/13/22 17:13 02/13/22 17:13 02/13/22 17:13 02/13/22 17:13 02/13/22 17:13 - General physical appearance Positive: well developed, no distress, no pain, cathetic - Eyes Positive: PERRL. Negative: icteric - ENT Positive: no hearing loss - Respiratory Positive: normal expansion, normal respiratory effort - Cardiovascular Heart Sounds: Present: S1 & S2 - Abdomen Abdomen: Present: soft, other (tender to deep palpation right subcostal area). Absent: rebound, guarding Results - Labs 02/13/22 18:16 02/13/22 18:16 Abnormal lab results 02/13/22 02/13/22 02/14/22 Range/Units 18:16 18:16 08:27 RDW 16.6 H (13.2-15.2) % Lymph % (Auto) 7.8 L (13.4-35.0) % Lymph # (Auto) 0.7 L (1.2-5.4) K/mm3 Seg Neutrophils % 85.9 H (40.0-70.0) % Seg Neutrophils # 8.2 H (1.8-7.7) K/mm3 Chloride 97.9 L (98-107) mmol/L Carbon Dioxide 21 L (22-30) mmol/L BUN 29 H (7-17) mg/dL Glucose 154 H (65-100) mg/dL Calcium 11.2 H (8.4-10.2) mg/dL Alkaline Phosphatase 292 H (35-129) units/L Albumin 3.6 L (3.9-5) g/dL Ur Specific [place] 1.050 H (1.003-1.030) Diabetes panel 02/13/22 Range/Units 18:16 Sodium 139 (137-145) mmol/L Potassium 4.5 (3.6-5.0) mmol/L Chloride 97.9 L (98-107) mmol/L Carbon Dioxide 21 L (22-30) mmol/L BUN 29 H (7-17) mg/dL Creatinine 1.2 (0.6-1.2) mg/dL Glucose 154 H (65-100) mg/dL Calcium 11.2 H (8.4-10.2) mg/dL AST 36 (5-40) units/L ALT 43 (7-56) units/L Alkaline Phosphatase 292 H (35-129) units/L Total Protein 8.1 (6.3-8.2) g/dL Albumin 3.6 L (3.9-5) g/dL Calcium panel 02/13/22 Range/Units 18:16 Calcium 11.2 H (8.4-10.2) mg/dL Albumin 3.6 L (3.9-5) g/dL Pituitary panel 02/13/22 Range/Units 18:16 Sodium 139 (137-145) mmol/L Potassium 4.5 (3.6-5.0) mmol/L Chloride 97.9 L (98-107) mmol/L Carbon Dioxide 21 L (22-30) mmol/L BUN 29 H (7-17) mg/dL Creatinine 1.2 (0.6-1.2) mg/dL Glucose 154 H (65-100) mg/dL Calcium 11.2 H (8.4-10.2) mg/dL Adrenal panel 02/13/22 Range/Units 18:16 Sodium 139 (137-145) mmol/L Potassium 4.5 (3.6-5.0) mmol/L Chloride 97.9 L (98-107) mmol/L Carbon Dioxide 21 L (22-30) mmol/L BUN 29 H (7-17) mg/dL Creatinine 1.2 (0.6-1.2) mg/dL Glucose 154 H (65-100) mg/dL Calcium 11.2 H (8.4-10.2) mg/dL Total Bilirubin 0.50 (0.1-1.2) mg/dL AST 36 (5-40) units/L ALT 43 (7-56) units/L Alkaline Phosphatase 292 H (35-129) units/L Total Protein 8.1 (6.3-8.2) g/dL Albumin 3.6 L (3.9-5) g/dL - Imaging CT scan - abdomen: report reviewed, image reviewed CT scan - pelvis: report reviewed, image reviewed US - abdomen: report reviewed, image reviewed Assessment and Plan 71-year-old female with right-sided abdominal pain, intermittent nausea vomiting and gallstones seen on imaging. Patient is afebrile and stable with a right- sided hilar mass. HIDA scan is ordered to evaluate function of gallbladder. Discussed patient's pathology and treatment options at length. At this time patient is reluctant to have cholecystectomy unless urgently indicated due to the fact that she has several other significant morbidities, such as sarcoidosis and long-term steroid use, as well as lung cancer for which she is being worked up for metastasis with a biopsy next week. Patient says that she is able to control the nausea and vomiting and pain is controlled she would like to defer cholecystectomy at this time and complete her metastatic work-up. Will await for results of HIDA scan. Patient is comfortable and symptoms controlled patient can be discharged and follow-up as an outpatient if she would like to have her gallbladder out in the future. Patient understands that if symptoms are due to her gallbladder they could return or worsen.
[2022-02-14] MEDS: MORPHINE 2 MG/1 ML INJ IV PRN ×2 (14:44→18:47)
--- NOTE | 2022-02-14 14:44 | Consultation ---
History of Present Illness Consult date: 02/14/22 Requesting physician: ALFREDO MARY Reason for consult: abnormal CXR/CT History of present illness: 71 y/o with known lung CA of the right hilum and now with concern for mets based on last PET ct, admitted with abdominal pain and intractable nausea and vomiting. CT of the abdomen pelvis taken and lower lung zones were captured. There were changes in the bases that were abnormal prompting pulmonary consult. Patient is not complaining of fever, worsening shortness of breath or cough and no chest pain. She has already been through chemo and radiation and is now being started on Keytruda therapy. Patient could not remember the type of lung cancer she has and I did not ask her who her outpatient pulm doc is. Remainder is negative. Past History Past Medical History: cancer (lung CA with concern for mets), diabetes, hypertension, sarcoidosis Past Surgical History: Other (Hysterectomy, left hip surgery, left arm surgery) Social history: no significant social history Family history: no significant family history Medications and Allergies Allergies Allergy/AdvReac Type Severity Reaction Status Date / Time No Known Allergies Allergy Verified 02/14/22 12:24 Home Medications Medication Instructions Recorded Confirmed Last Taken Type Citalopram [Celexa] 20 mg PO DAILY 03/10/14 02/14/22 10/22/19 History Prednisone [predniSONE ([place]) ER 5 mg PO DAILY 03/10/14 02/14/22 Unknown History TAB] Omeprazole Magnesium [PriLOSEC Otc] 20 mg PO BID #60 tab 03/11/14 02/14/22 10/22/19 Rx Ondansetron [Zofran ODT TAB] 4 mg PO Q8HR PRN #20 tab.rapdis 04/18/19 02/14/22 Unknown Rx Apixaban [Eliquis] 5 mg PO BID 02/14/22 02/14/22 Unknown History Ascorbic Acid [Vitamin C] 1,000 mg PO QDAY 02/14/22 02/14/22 Unknown History AtorvaSTATin [Lipitor] 10 mg PO QHS 02/14/22 02/14/22 Unknown History Cholecalciferol (Vitamin D3) 2,000 unit PO QDAY 02/14/22 02/14/22 Unknown History [Vitamin D3 2,000 UNIT CHEW TAB] Fluticasone Propion/Salmeterol 1 each IH QDAY 02/14/22 02/14/22 Unknown History [Fluticasone-Salmeterol 100-50] HYDROcodone/APAP 10-325 [[place] 1 each PO BID PRN 02/14/22 02/14/22 Unknown History 10/325] Levothyroxine [Synthroid] 50 mcg PO QAM 02/14/22 02/14/22 Unknown History Lidocaine/Prilocaine 5 gm TP QDAY PRN 02/14/22 02/14/22 Unknown History [Lidocaine-Prilocaine Cream] Potassium Chloride 10 meq PO QDAY 02/14/22 02/14/22 Unknown History amLODIPine [Norvasc] 5 mg PO DAILY 02/14/22 02/14/22 Unknown History buPROPion HCL [Bupropion Xl] 150 mg PO QDAY 02/14/22 02/14/22 Unknown History Active Meds: Active Medications Acetaminophen (Acetaminophen 325 Mg Tab) 650 mg PO Q4H PRN PRN Reason: Pain MILD(1-3)/Fever >100.5/DEVLIN Azithromycin (Azithromycin 250 Mg Tab) 500 mg PO QDAY [facility]; Protocol Stop: 02/18/22 10:01 Dextrose (Dextrose 50% In Water (25gm) 50 Ml Syringe) 50 ml IV Q30MIN PRN; Protocol PRN Reason: Hypoglycemia Famotidine (Famotidine 20 Mg/2 Ml Inj) 20 mg IV DAILY [facility] Last Admin: 02/14/22 09:09 Dose: 20 mg Hydralazine HCl (Hydralazine 25 Mg Tab) 25 mg PO Q8HR [facility] Last Admin: 02/14/22 07:53 Dose: 25 mg Hydromorphone HCl (Hydromorphone 1 Mg/1 Ml Inj) 0.5 mg IV Q3H PRN PRN Reason: Pain , Severe (7-10) Hydroxychloroquine Sulfate (Hydroxychloroquine 200 Mg Tab) 200 mg PO BID [facility] Sodium Chloride (Nacl 0.45% 1000 Ml) 1,000 mls @ 100 mls/hr IV DIRECT [facility] Last Admin: 02/14/22 07:56 Dose: 100 mls/hr Ceftriaxone Sodium (Rocephin/Ns 2 Gm/100 Ml) 2 gm in 100 mls @ 200 mls/hr IV Q2 4H [facility]; Protocol Stop: 02/18/22 06:29 Last Admin: 02/14/22 07:51 Dose: 200 mls/hr Insulin Human Lispro (Insulin Lispro 100 Unit/Ml) 0 unit SUB-Q Q6HR [facility]; Protocol Last Admin: 02/14/22 12:00 Dose: Not Given Lisinopril (Lisinopril 20 Mg Tab) 20 mg PO QDAY [facility] Last Admin: 02/14/22 10:03 Dose: 20 mg Methocarbamol (Methocarbamol 500 Mg Tab) 500 mg PO BID [facility] Metoprolol Tartrate (Metoprolol Tartrate 50 Mg Tab) 50 mg PO DAILY [facility] Last Admin: 02/14/22 10:03 Dose: 50 mg Morphine Sulfate (Morphine 2 Mg/1 Ml Inj) 2 mg IV Q4H PRN PRN Reason: Pain, Moderate (4-6) Ondansetron HCl (Ondansetron 4 Mg/2 Ml Inj) 4 mg IV Q8H PRN PRN Reason: Nausea And Vomiting Last Admin: 02/14/22 10:03 Dose: 4 mg Prednisone (Prednisone 5 Mg Tab) 5 mg PO DAILY [facility] Sodium Chloride (Sodium Chloride 0.9% 10 Ml Flush Syringe) 10 ml IV BID [facility] Last Admin: 02/14/22 09:09 Dose: 10 ml Sodium Chloride (Sodium Chloride 0.9% 10 Ml Flush Syringe) 10 ml IV PRN PRN PRN Reason: LINE FLUSH Review of Systems All systems: negative Physical Examination Vital signs: Vital Signs Temp Pulse Resp BP Pulse Ox 98.7 F 98 H 16 188/100 97 02/13/22 17:13 02/13/22 17:13 02/13/22 17:13 02/13/22 17:13 02/13/22 17:13 Results - Laboratory Findings CBC and BMP: 02/13/22 18:16 02/13/22 18:16 Abnormal lab findings: Abnormal Labs 02/13/22 02/13/22 02/14/22 18:16 18:16 08:27 RDW 16.6 H Lymph % (Auto) 7.8 L Lymph # (Auto) 0.7 L Seg Neutrophils % 85.9 H Seg Neutrophils # 8.2 H Chloride 97.9 L Carbon Dioxide 21 L BUN 29 H Glucose 154 H Calcium 11.2 H Alkaline Phosphatase 292 H Albumin 3.6 L Ur Specific [place] 1.050 H - Diagnostic Findings Additional studies: Reviewed lower lung zones seen on CT of abdomen and pelvis and reports. Assessment and Plan 71 y/o female with known Sarcoid, and known Lung CA s/p chemo/rads and now on Keytruda, admitted with intractable nausea and vomiting. 1. Patient with no pulmonary complaints. Her CT is abnormal but I do not know if the changes we are seeing are new or chronic. She has had several scans in the past. Given her pulm stability I suggest follow up with outpatient physician and have them compare images before invasive actions are taken here 2. Keytruda can cause significant nausea and vomiting. I did not ask about onset of symptoms in relation to starting this drug but may need to be considered. 3. She is immunocompromised so she is at risk for atypical infection but currently with no pulm symptoms. 4. At this point, will sign off.
--- NOTE | 2022-02-14 15:11 | Nuclear Medicine Report ---
NUCLEAR MEDICINE HEPATOBILIARY SCAN INDICATION / CLINICAL INFORMATION: RUQ pain, gallstones. TECHNIQUE: - Radiotracer: Tc-99m mebrofenin (by IV): 5.1 mCi. - Gallbladder Stimulant: Kinevac (in cc by IV): 0.9 COMPARISON: CT abdomen and pelvis one day prior FINDINGS: HEPATIC ACTIVITY: Normal. BILIARY ACTIVITY: Normal. Common bile duct activity at 20 minutes. GALLBLADDER ACTIVITY: Normal at 45 minutes. SMALL BOWEL ACTIVITY: Normal at 45 minutes. GALLBLADDER EJECTION FRACTION % (if calculated): 12 - Normal at 30 min with Cholecystokinin: >35% - Normal at 60 min with Ensure/Glucerna: >33% PATIENT SYMPTOM REPRODUCTION: Concordant symptoms.. IMPRESSION: 1. Biliary obstruction: None. 2. Gallbladder ejection fraction: Below normal. Signer Name: Fareed Carrizales MD Signed: 02/14/2022 3:06 PM Workstation Name: [employer]
--- NOTE | 2022-02-14 15:32 | Event Note ---
Date: 02/14/22 HIDA scan reviewed. Patient has low ejection fraction consistent with biliary dyskinesia. There are no signs obstruction or cholecystitis. Recommend patient follow-up as an outpatient for elective cholecystectomy if her symptoms persist. Patient says that she would like to delay surgery at this time due to other pressing health conditions and metastatic work-up of lung cancer.
[2022-02-14] MEDS: amLODIPine 5 MG TAB PO SCH (18:43)
[2022-02-14] MEDS: predniSONE 5 MG TAB PO SCH (18:48)
[2022-02-14] MEDS: HYDROXYCHLOROQUINE 200 MG TAB PO SCH ×2 (18:48→21:48)
[2022-02-14] MEDS: AZITHROMYCIN 250 MG TAB PO SCH (18:49)
[2022-02-14 19:02] LABS: Hematocrit 32.8 % (30.3-42.9); Hemoglobin 10.6 gm/dl (10.1-14.3); Mean Corpuscular HGB Conc 32 % (30-34); Mean Corpuscular Volume 89 fl (79-97); Platelet Count 186 K/mm3 (140-440); Red Blood Count 3.68 M/mm3 (3.65-5.03); Red Cell Distribution Width 16.5 % (13.2-15.2)
[2022-02-14 19:13] LABS: INR 1.07 (0.87-1.13)
[2022-02-14 19:14] LABS: Partial Thromboplastin Time 31.3 Sec. (24.2-36.6)
--- NOTE | 2022-02-14 19:29 | Progress Note ---
Assessment and Plan Assessment and plan: -- Epigastric pain Current Visit: Yes Status: Acute Admit the patient to the medical telemetry. Famotidine 20 mg IV every 12 hours. Reglan 10 mg IV x1 dose. Morphine 2 mg IV every 4 hours as needed. Consult surgery for evaluation of cholelithiasis. Recheck CBC CMP in the morning --cholelithiasis; Current Visit: Yes Status: Acute Surgery evaluated the patient, recommended HIDA scan And possible cholecystectomy, Continue n.p.o. status, supportive care --History of lung cancer/right hilar mass; Received chemotherapy and radiation Patient is being evaluated for metastatic disease Had PET scan recently that showed lesions of lumbar spine pending biopsy next week. Pulmonary consulted --GERD; Famotidine 20 mg IV daily for GI prophylaxis. --Diabetes mellitus Current Visit: No Status: Acute Humalog sliding scale with moderate dose coverage. We continue the home medication. Diabetic education --History of sarcoidosis Current Visit: No Status: Acute Stable. We will continue the home medication. We will also consult pulmonary for evaluation --Hypertension Current Visit: No Status: Acute Hydralazine 10 mg IV every 6 hours as needed. Hydralazine 25 mg p.o. every 8 hours. Lisinopril 20 mg p.o. daily --DVT prophylaxis Current Visit: No Status: Acute SCD for DVT prophylaxis. Patient is a full code We will closely monitor the patient and adjust management as needed Information Technology Advisor recommendations noted and appreciated Plan of care reviewed with the patient and her at the bedside I also discussed with patient's nurse We will closely monitor the patient and adjust the management as needed History Interval history: I have seen and examined the patient at the bedside Patient's chart and medications reviewed Patient complains intractable nausea and abdominal discomfort Underwent HIDA scan this morning pending report Complains of generalized weakness vital signs noted Hospitalist Physical - Constitutional Vitals: Temp Pulse Resp BP Pulse Ox 99.6 F 88 20 108/52 97 02/14/22 16:25 02/14/22 16:25 02/14/22 16:25 02/14/22 18:43 02/14/22 16:25 General appearance: Present: no acute distress, well-nourished - EENT Eyes: Present: PERRL, EOM intact - Neck Neck: Present: supple, normal ROM - Respiratory Respiratory effort: normal Respiratory: bilateral: diminished, negative: rales, rhonchi, wheezing - Cardiovascular Rhythm: regular Heart Sounds: Present: S1 & S2 - Extremities Extremities: no ischemia, No edema - Abdominal General gastrointestinal: soft, non-tender, non-distended, normal bowel sounds - Integumentary Integumentary: Present: clear, warm - Psychiatric Psychiatric: appropriate mood/affect, cooperative - Neurologic Neurologic: CNII-XII intact, moves all extremities HEART Score - HEART Score Troponin: Troponin T 0.019 ng/mL (0.00-0.029) 02/13/22 18:16 Results - Labs CBC & Chem 7: 02/14/22 18:38 02/14/22 18:38 Labs: Laboratory Last Values WBC 8.4 K/mm3 (4.5-11.0) 02/14/22 18:38 RBC 3.68 M/mm3 (3.65-5.03) 02/14/22 18:38 Hgb 10.6 gm/dl (10.1-14.3) 02/14/22 18:38 Hct 32.8 % (30.3-42.9) 02/14/22 18:38 MCV 89 fl (79-97) 02/14/22 18:38 MCH 29 pg (28-32) 02/14/22 18:38 MCHC 32 % (30-34) 02/14/22 18:38 RDW 16.5 % (13.2-15.2) H 02/14/22 18:38 Plt Count 186 K/mm3 (140-440) 02/14/22 18:38 Lymph % (Auto) 7.8 % (13.4-35.0) L 02/13/22 18:16 [place] % (Auto) 5.1 % (0.0-7.3) 02/13/22 18:16 Eos % (Auto) 0.5 % (0.0-4.3) 02/13/22 18:16 Baso % (Auto) 0.7 % (0.0-1.8) 02/13/22 18:16 Lymph # (Auto) 0.7 K/mm3 (1.2-5.4) L 02/13/22 18:16 [place] # (Auto) 0.5 K/mm3 (0.0-0.8) 02/13/22 18:16 Eos # (Auto) 0.0 K/mm3 (0.0-0.4) 02/13/22 18:16 Baso # (Auto) 0.1 K/mm3 (0.0-0.1) 02/13/22 18:16 Seg Neutrophils % 85.9 % (40.0-70.0) H 02/13/22 18:16 Seg Neutrophils # 8.2 K/mm3 (1.8-7.7) H 02/13/22 18:16 PT 15.1 Sec. (12.2-14.9) H 02/14/22 18:38 INR 1.07 (0.87-1.13) 02/14/22 18:38 APTT 31.3 Sec. (24.2-36.6) 02/14/22 18:38 Sodium 139 mmol/L (137-145) 02/13/22 18:16 Potassium 4.5 mmol/L (3.6-5.0) 02/13/22 18:16 Chloride 97.9 mmol/L (98-107) L 02/13/22 18:16 Carbon Dioxide 21 mmol/L (22-30) L 02/13/22 18:16 Anion Gap 25 mmol/L 02/13/22 18:16 BUN 29 mg/dL (7-17) H 02/13/22 18:16 Creatinine 1.9 mg/dL (0.6-1.2) H D 02/14/22 18:38 Estimated GFR 32 ml/min 02/14/22 18:38 BUN/Creatinine Ratio 24 % 02/13/22 18:16 Glucose 154 mg/dL (65-100) H 02/13/22 18:16 Calcium 11.2 mg/dL (8.4-10.2) H 02/13/22 18:16 Total Bilirubin 0.50 mg/dL (0.1-1.2) 02/13/22 18:16 AST 36 units/L (5-40) 02/13/22 18:16 ALT 43 units/L (7-56) 02/13/22 18:16 Alkaline Phosphatase 292 units/L (35-129) H 02/13/22 18:16 Troponin T 0.019 ng/mL (0.00-0.029) 02/13/22 18:16 Total Protein 8.1 g/dL (6.3-8.2) 02/13/22 18:16 Albumin 3.6 g/dL (3.9-5) L 02/13/22 18:16 Albumin/Globulin Ratio 0.8 % 02/13/22 18:16 Lipase 52 units/L (13-60) 02/13/22 18:16 Urine Color Yellow (Yellow) 02/14/22 08:27 Urine Turbidity Clear (Clear) 02/14/22 08:27 Urine pH 6.0 (5.0-7.0) 02/14/22 08:27 Ur Specific [place] 1.050 (1.003-1.030) H 02/14/22 08:27 Urine Protein 30 mg/dl mg/dL (Negative) 02/14/22 08:27 Urine Glucose (UA) Neg mg/dL (Negative) 02/14/22 08:27 Urine Ketones Tr mg/dL (Negative) 02/14/22 08:27 Urine Blood Neg (Negative) 02/14/22 08:27 Urine Nitrite Neg (Negative) 02/14/22 08:27 Urine Bilirubin Neg (Negative) 02/14/22 08:27 Urine Urobilinogen 2.0 mg/dL (<2.0) 02/14/22 08:27 Ur Leukocyte Esterase Neg (Negative) 02/14/22 08:27 Urine WBC (Auto) 2.0 /HPF (0.0-6.0) 02/14/22 08:27 Urine RBC (Auto) 2.0 /HPF (0.0-6.0) 02/14/22 08:27 U Epithel Cells (Auto) 2.0 /HPF (0-13.0) 02/14/22 08:27 Jamil/IV: Voiding Method Toilet Active Medications - Current Medications Current Medications: Generic Name Dose Route Start Last Admin Trade Name Freq PRN Reason Stop Dose Admin Acetaminophen 650 mg 02/14/22 03:29 Acetaminophen 325 Mg Tab PO Q4H PRN Pain MILD(1-3)/Fever >100.5/DEVLIN Amlodipine Besylate 5 mg 02/14/22 16:00 02/14/22 18:43 Amlodipine 5 Mg Tab PO Not Given DAILY [facility] Apixaban 5 mg 02/14/22 22:00 Apixaban 5 Mg Tab PO Q12HR [facility] Protocol Atorvastatin Calcium 10 mg 02/14/22 22:00 Atorvastatin 10 Mg Tab PO QHS [facility] Azithromycin 500 mg 02/14/22 10:00 02/14/22 18:49 Azithromycin 250 Mg Tab PO 02/18/22 10:01 500 mg QDAY [facility] Administration Protocol Bupropion HCl 150 mg 02/15/22 10:00 Bupropion Xl 150 Mg Tab PO QDAY [facility] Dextrose 50 ml 02/14/22 03:29 Dextrose 50% In Water (25gm) 50 Ml Syringe IV Q30MIN PRN Hypoglycemia Protocol Famotidine 20 mg 02/14/22 10:00 02/14/22 09:09 Famotidine 20 Mg/2 Ml Inj IV 20 mg DAILY [facility] Administration Hydralazine HCl 25 mg 02/14/22 06:00 02/14/22 18:42 Hydralazine 25 Mg Tab PO Not Given Q8HR [facility] Hydromorphone HCl 0.5 mg 02/14/22 03:29 Hydromorphone 1 Mg/1 Ml Inj IV Q3H PRN Pain , Severe (7-10) Hydroxychloroquine Sulfate 200 mg 02/14/22 10:00 02/14/22 18:48 Hydroxychloroquine 200 Mg Tab PO 200 mg BID [facility] Administration Sodium Chloride 1,000 mls @ 100 mls/hr 02/14/22 04:00 02/14/22 07:56 Nacl 0.45% 1000 Ml IV 100 mls/hr DIRECT [facility] Administration Ceftriaxone Sodium 2 gm in 100 mls @ 200 mls/hr 02/14/22 06:00 02/14/22 07:51 Rocephin/Ns 2 Gm/100 Ml IV 02/18/22 06:29 200 mls/hr Q24H [facility] Administration Protocol Insulin Human Lispro 0 unit 02/14/22 06:00 02/14/22 18:45 Insulin Lispro 100 Unit/Ml SUB-Q Not Given Q6HR [facility] Protocol Levothyroxine Sodium 50 mcg 02/15/22 06:00 Levothyroxine 50 Mcg Tab PO DAILY@0600 [facility] Lisinopril 20 mg 02/14/22 10:00 02/14/22 10:03 Lisinopril 20 Mg Tab PO 20 mg QDAY [facility] Administration Methocarbamol 500 mg 02/14/22 10:00 02/14/22 18:49 Methocarbamol 500 Mg Tab PO 500 mg BID [facility] Administration Metoprolol Tartrate 50 mg 02/14/22 10:00 02/14/22 10:03 Metoprolol Tartrate 50 Mg Tab PO 50 mg DAILY [facility] Administration Morphine Sulfate 2 mg 02/14/22 03:29 02/14/22 18:47 Morphine 2 Mg/1 Ml Inj IV 2 mg Q4H PRN Administration Pain, Moderate (4-6) Ondansetron HCl 4 mg 02/14/22 15:28 Ondansetron 4 Mg/2 Ml Inj IV Q4H PRN Nausea And Vomiting Prednisone 5 mg 02/14/22 10:00 02/14/22 18:48 Prednisone 5 Mg Tab PO 5 mg DAILY [facility] Administration Sodium Chloride 10 ml 02/14/22 10:00 02/14/22 09:09 Sodium Chloride 0.9% 10 Ml Flush Syringe IV 10 ml BID [facility] Administration Sodium Chloride 10 ml 02/14/22 03:29 Sodium Chloride 0.9% 10 Ml Flush Syringe IV PRN PRN LINE FLUSH Nutrition/Malnutrition Assess - Dietary Evaluation Nutrition/Malnutrition Findings: Nutrition Notes Start: 02/14/22 15:21 Freq: Status: Active Protocol: Document 02/14/22 15:21 FLOYD (Rec: 02/14/22 15:35 FLOYD [id number]) Nutrition Notes Need for Assessment generated from: MD Order,Education Initial or Follow up Brief Note Current Diagnosis COPD,Diabetes,Hypertension Other Pertinent Diagnosis N/V/Abdominal Pain, Pulmonary infiltrates, Sarcoidosis. Current Diet Clear Liquids Diet (from D ). 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 Weight Status Appropriate Subjective/Other Information RD consult for nutrition education. No reports available on Pt's PO intake of meals at the time , will assess at F/U. Pt is on Nasal Cannula, O2 saturation @ 96%, according to Physical Assessment History notes. Pt still in critical condition , not a candidate for Nutrition Education at the time, will assess feasibility on F/U. Percent of energy/protein needs met: Prescribed Clear Liquids Diet provides for energy/protein needs (590 Kcal/16 g) during LOS Nutrition Intervention Follow-Up By: 02/21/22 Additional Comments Nutrition education will be provided on F/U, if feasible. Continue monitoring food tolerance, %PO intake of meals , and BM.
--- NOTE | 2022-02-14 19:46 | Event Note ---
Date: 02/14/22 HIDA scan report findings reviewed, discussed with the patient and the family member at the bedside Patient wants to discuss the report findings and treatment plan with the surgeon before making any decisions Started clear liquids, and place n.p.o. from midnight.
[2022-02-14] MEDS: APIXABAN 5 MG TAB PO SCH (21:48)
[2022-02-15] MEDS: INSULIN LISPRO 100 UNIT/ML SUB-Q SCH ×4 (00:22→18:00)
[2022-02-15] MEDS: cefTRIAXone/NS 2 GM/100 ML 2 GM/100 ML BAG IV SCH (05:45)
[2022-02-15] MEDS: LEVOTHYROXINE 50 MCG TAB PO SCH (05:45)
[2022-02-15] MEDS: hydrALAZINE 25 MG TAB PO SCH ×3 (06:39→21:28)
[2022-02-15 07:56] LABS: Basophils % (Auto) 0.3 % (0.0-1.8); Eosinophils # (Auto) 0.1 K/mm3 (0.0-0.4); Hematocrit 32.7 % (30.3-42.9); Hemoglobin 10.3 gm/dl (10.1-14.3); Lymphocytes # (Auto) 0.6 K/mm3 (1.2-5.4); Lymphocytes % (Auto) 8.2 % (13.4-35.0); Mean Corpuscular HGB Conc 32 % (30-34); Mean Corpuscular Volume 89 fl (79-97); Monocytes # (Auto) 0.5 K/mm3 (0.0-0.8); Monocytes % (Auto) 6.7 % (0.0-7.3); Platelet Count 157 K/mm3 (140-440); Red Blood Count 3.69 M/mm3 (3.65-5.03); Red Cell Distribution Width 16.6 % (13.2-15.2)
[2022-02-15 08:05] LABS: Calcium 9.6 mg/dL (8.4-10.2)
[2022-02-15] MEDS: FAMOTIDINE 20 MG/2 ML INJ IV SCH ×2 (08:09→10:00)
--- NOTE | 2022-02-15 08:14 | Progress Note ---
Assessment and Plan Assessment and plan: Hepatobiliary scan; biliary obstruction none gallbladder ejection fraction below normal; 12[normal more than 35%] -- Epigastric pain Current Visit: Yes Status: Acute Admit the patient to the medical telemetry. Famotidine 20 mg IV every 12 hours. Reglan 10 mg IV x1 dose. Morphine 2 mg IV every 4 hours as needed. Consult surgery for evaluation of cholelithiasis. Recheck CBC CMP in the morning --cholelithiasis; Current Visit: Yes Status: Acute Surgery evaluated the patient, recommended HIDA scan And possible cholecystectomy, Continue n.p.o. status, supportive care --History of lung cancer/right hilar mass; Received chemotherapy and radiation Patient is being evaluated for metastatic disease Had PET scan recently that showed lesions of lumbar spine pending biopsy next week. Pulmonary consulted --GERD; Famotidine 20 mg IV daily for GI prophylaxis. --Diabetes mellitus Current Visit: No Status: Acute Humalog sliding scale with moderate dose coverage. We continue the home medication. Diabetic education --History of sarcoidosis Current Visit: No Status: Acute Stable. We will continue the home medication. We will also consult pulmonary for evaluation --Hypertension Current Visit: No Status: Acute Hydralazine 10 mg IV every 6 hours as needed. Hydralazine 25 mg p.o. every 8 hours. Lisinopril 20 mg p.o. daily --DVT prophylaxis Current Visit: No Status: Acute SCD for DVT prophylaxis. Patient is a full code We will closely monitor the patient and adjust management as needed Strategic Sourcing Manager recommendations noted and appreciated Plan of care reviewed with the patient and her at the bedside I also discussed with patient's nurse We will closely monitor the patient and adjust the management as needed History Interval history: I have seen and examined the patient this morning at the bedside Patient's chart and medications reviewed Biliary scan report reviewed patient continues to have intractable nausea vomiting unable to keep down anything started on clear liquids as tolerated Hospitalist Physical - Constitutional Vitals: Temp Pulse Resp BP Pulse Ox 99.7 F H 92 H 14 173/91 99 02/15/22 06:33 02/15/22 06:33 02/15/22 06:33 02/15/22 06:33 02/15/22 06:33 General appearance: Present: no acute distress, well-nourished - EENT Eyes: Present: PERRL, EOM intact - Neck Neck: Present: supple, normal ROM - Respiratory Respiratory effort: normal Respiratory: bilateral: diminished, rhonchi, negative: rales, wheezing - Cardiovascular Rhythm: regular Heart Sounds: Present: S1 & S2 - Extremities Extremities: no ischemia, No edema - Abdominal General gastrointestinal: soft, non-tender, non-distended, normal bowel sounds - Integumentary Integumentary: Present: clear, warm - Psychiatric Psychiatric: appropriate mood/affect, cooperative - Neurologic Neurologic: moves all extremities HEART Score - HEART Score Troponin: Troponin T 0.019 ng/mL (0.00-0.029) 02/13/22 18:16 Results - Labs CBC & Chem 7: 02/15/22 07:00 02/15/22 07:00 Labs: Laboratory Last Values WBC 7.7 K/mm3 (4.5-11.0) 02/15/22 07:00 RBC 3.69 M/mm3 (3.65-5.03) 02/15/22 07:00 Hgb 10.3 gm/dl (10.1-14.3) 02/15/22 07:00 Hct 32.7 % (30.3-42.9) 02/15/22 07:00 MCV 89 fl (79-97) 02/15/22 07:00 MCH 28 pg (28-32) 02/15/22 07:00 MCHC 32 % (30-34) 02/15/22 07:00 RDW 16.6 % (13.2-15.2) H 02/15/22 07:00 Plt Count 157 K/mm3 (140-440) 02/15/22 07:00 Lymph % (Auto) 8.2 % (13.4-35.0) L 02/15/22 07:00 [place] % (Auto) 6.7 % (0.0-7.3) 02/15/22 07:00 Eos % (Auto) 1.0 % (0.0-4.3) 02/15/22 07:00 Baso % (Auto) 0.3 % (0.0-1.8) 02/15/22 07:00 Lymph # (Auto) 0.6 K/mm3 (1.2-5.4) L 02/15/22 07:00 [place] # (Auto) 0.5 K/mm3 (0.0-0.8) 02/15/22 07:00 Eos # (Auto) 0.1 K/mm3 (0.0-0.4) 02/15/22 07:00 Baso # (Auto) 0.0 K/mm3 (0.0-0.1) 02/15/22 07:00 Seg Neutrophils % 83.8 % (40.0-70.0) H 02/15/22 07:00 Seg Neutrophils # 6.4 K/mm3 (1.8-7.7) 02/15/22 07:00 PT 15.1 Sec. (12.2-14.9) H 02/14/22 18:38 INR 1.07 (0.87-1.13) 02/14/22 18:38 APTT 31.3 Sec. (24.2-36.6) 02/14/22 18:38 Sodium 136 mmol/L (137-145) L 02/15/22 07:00 Potassium 5.0 mmol/L (3.6-5.0) 02/15/22 07:00 Chloride 99.2 mmol/L (98-107) 02/15/22 07:00 Carbon Dioxide 21 mmol/L (22-30) L 02/15/22 07:00 Anion Gap 21 mmol/L 02/15/22 07:00 BUN 43 mg/dL (7-17) H 02/15/22 07:00 Creatinine 1.7 mg/dL (0.6-1.2) H 02/15/22 07:00 Estimated GFR 36 ml/min 02/15/22 07:00 BUN/Creatinine Ratio 25 % 02/15/22 07:00 Glucose 110 mg/dL (65-100) H 02/15/22 07:00 POC Glucose 115 mg/dL (70-105) H 02/14/22 23:36 Calcium 9.6 mg/dL (8.4-10.2) 02/15/22 07:00 Total Bilirubin 0.50 mg/dL (0.1-1.2) 02/13/22 18:16 AST 36 units/L (5-40) 02/13/22 18:16 ALT 43 units/L (7-56) 02/13/22 18:16 Alkaline Phosphatase 292 units/L (35-129) H 02/13/22 18:16 Troponin T 0.019 ng/mL (0.00-0.029) 02/13/22 18:16 Total Protein 8.1 g/dL (6.3-8.2) 02/13/22 18:16 Albumin 3.6 g/dL (3.9-5) L 02/13/22 18:16 Albumin/Globulin Ratio 0.8 % 02/13/22 18:16 Lipase 52 units/L (13-60) 02/13/22 18:16 Urine Color Yellow (Yellow) 02/14/22 08:27 Urine Turbidity Clear (Clear) 02/14/22 08:27 Urine pH 6.0 (5.0-7.0) 02/14/22 08:27 Ur Specific [place] 1.050 (1.003-1.030) H 02/14/22 08:27 Urine Protein 30 mg/dl mg/dL (Negative) 02/14/22 08:27 Urine Glucose (UA) Neg mg/dL (Negative) 02/14/22 08:27 Urine Ketones Tr mg/dL (Negative) 02/14/22 08:27 Urine Blood Neg (Negative) 02/14/22 08:27 Urine Nitrite Neg (Negative) 02/14/22 08:27 Urine Bilirubin Neg (Negative) 02/14/22 08:27 Urine Urobilinogen 2.0 mg/dL (<2.0) 02/14/22 08:27 Ur Leukocyte Esterase Neg (Negative) 02/14/22 08:27 Urine WBC (Auto) 2.0 /HPF (0.0-6.0) 02/14/22 08:27 Urine RBC (Auto) 2.0 /HPF (0.0-6.0) 02/14/22 08:27 U Epithel Cells (Auto) 2.0 /HPF (0-13.0) 02/14/22 08:27 Jamil/IV: Voiding Method Toilet Active Medications - Current Medications Current Medications: Generic Name Dose Route Start Last Admin Trade Name Freq PRN Reason Stop Dose Admin Acetaminophen 650 mg 02/14/22 03:29 Acetaminophen 325 Mg Tab PO Q4H PRN Pain MILD(1-3)/Fever >100.5/DEVLIN Amlodipine Besylate 5 mg 02/14/22 16:00 02/14/22 18:43 Amlodipine 5 Mg Tab PO Not Given DAILY MINISTERIO Apixaban 5 mg 02/14/22 22:00 02/14/22 21:48 Apixaban 5 Mg Tab PO 5 mg Q12HR [facility]ISTERIO Administration Protocol Atorvastatin Calcium 10 mg 02/14/22 22:00 02/14/22 21:48 Atorvastatin 10 Mg Tab PO 10 mg QHS MINISTERIO Administration Azithromycin 500 mg 02/14/22 10:00 02/14/22 18:49 Azithromycin 250 Mg Tab PO 02/18/22 10:01 500 mg QDAY MINISTERIO Administration Protocol Bupropion HCl 150 mg 02/15/22 10:00 Bupropion Xl 150 Mg Tab PO QDAY MINISTERIO Dextrose 50 ml 02/14/22 03:29 Dextrose 50% In Water (25gm) 50 Ml Syringe IV Q30MIN PRN Hypoglycemia Protocol Famotidine 20 mg 02/14/22 10:00 02/15/22 08:09 Famotidine 20 Mg/2 Ml Inj IV 20 mg DAILY MINISTERIO Administration Hydralazine HCl 25 mg 02/14/22 06:00 02/15/22 06:39 Hydralazine 25 Mg Tab PO 25 mg Q8HR [facility] Administration Hydralazine HCl 20 mg 02/15/22 08:08 Hydralazine 20 Mg/1 Ml Inj IV 02/15/22 08:09 ONCE ONE Hydralazine HCl 10 mg 02/15/22 08:08 Hydralazine 20 Mg/1 Ml Inj IV Q4HR PRN Hypertension Hydromorphone HCl 0.5 mg 02/14/22 03:29 Hydromorphone 1 Mg/1 Ml Inj IV Q3H PRN Pain , Severe (7-10) Hydroxychloroquine Sulfate 200 mg 02/14/22 10:00 02/14/22 21:48 Hydroxychloroquine 200 Mg Tab PO 200 mg BID MINISTERIO Administration Sodium Chloride 1,000 mls @ 100 mls/hr 02/14/22 04:00 02/14/22 21:54 Nacl 0.45% 1000 Ml IV 100 mls/hr DIRECT MINISTERIO Administration Ceftriaxone Sodium 2 gm in 100 mls @ 200 mls/hr 02/14/22 06:00 02/15/22 05:45 Rocephin/Ns 2 Gm/100 Ml IV 02/18/22 06:29 200 mls/hr Q24H MINISTERIO Administration Protocol Insulin Human Lispro 0 unit 02/14/22 06:00 02/15/22 06:40 Insulin Lispro 100 Unit/Ml SUB-Q Not Given Q6HR [facility] Protocol Levothyroxine Sodium 50 mcg 02/15/22 06:00 02/15/22 05:45 Levothyroxine 50 Mcg Tab PO 50 mcg DAILY@0600 MINISTERIO Administration Lisinopril 20 mg 02/14/22 10:00 02/14/22 10:03 Lisinopril 20 Mg Tab PO 20 mg QDAY MINISTERIO Administration Methocarbamol 500 mg 02/14/22 10:00 02/14/22 21:49 Methocarbamol 500 Mg Tab PO 500 mg BID MINISTERIO Administration Metoprolol Tartrate 50 mg 02/14/22 10:00 02/14/22 10:03 Metoprolol Tartrate 50 Mg Tab PO 50 mg DAILY MINISTERIO Administration Morphine Sulfate 2 mg 02/14/22 03:29 02/14/22 18:47 Morphine 2 Mg/1 Ml Inj IV 2 mg Q4H PRN Administration Pain, Moderate (4-6) Ondansetron HCl 4 mg 02/14/22 15:28 02/15/22 08:09 Ondansetron 4 Mg/2 Ml Inj IV 4 mg Q4H PRN Administration Nausea And Vomiting Prednisone 5 mg 02/14/22 10:00 02/14/22 18:48 Prednisone 5 Mg Tab PO 5 mg DAILY MINISTERIO Administration Sodium Chloride 10 ml 02/14/22 10:00 02/14/22 21:49 Sodium Chloride 0.9% 10 Ml Flush Syringe IV 10 ml BID MINISTERIO Administration Sodium Chloride 10 ml 02/14/22 03:29 Sodium Chloride 0.9% 10 Ml Flush Syringe IV PRN PRN LINE FLUSH Nutrition/Malnutrition Assess - Dietary Evaluation Nutrition/Malnutrition Findings: Nutrition Notes Start: 02/14/22 15:21 Freq: Status: Active Protocol: Document 02/14/22 15:21 FLOYD (Rec: 02/14/22 15:35 FLOYD [id number]) Nutrition Notes Need for Assessment generated from: MD Order,Education Initial or Follow up Brief Note Current Diagnosis COPD,Diabetes,Hypertension Other Pertinent Diagnosis N/V/Abdominal Pain, Pulmonary infiltrates, Sarcoidosis. Current Diet Clear Liquids Diet (from D ). Height 4 ft 10 in Weight 44.906 kg [place] Body Weight (kg) 40.90 BMI 20.7 Intake Prior to Admission Good Weight change and time frame Pt denies having loss body weight HOSPITAL ORDERLY. Weight Status Appropriate Subjective/Other Information RD consult for nutrition education. No reports available on Pt's PO intake of meals at the time , will assess at F/U. Pt is on Nasal Cannula, O2 saturation @ 96%, according to Physical Assessment History notes. Pt still in critical condition , not a candidate for Nutrition Education at the time, will assess feasibility on F/U. Percent of energy/protein needs met: Prescribed Clear Liquids Diet provides for energy/protein needs (590 Kcal/16 g) during LOS Nutrition Intervention Follow-Up By: 02/21/22 Additional Comments Nutrition education will be provided on F/U, if feasible. Continue monitoring food tolerance, %PO intake of meals , and BM.
[2022-02-15] MEDS ORDERED: hydrALAZINE 20 MG/1 ML INJ IV ONE (08:30)
[2022-02-15] MEDS: buPROPion XL 150 MG TAB PO SCH (10:00)
[2022-02-15] MEDS: HYDROXYCHLOROQUINE 200 MG TAB PO SCH ×2 (10:00→21:28)
[2022-02-15] MEDS: METOPROLOL TARTRATE 50 MG TAB PO SCH (10:00)
[2022-02-15] MEDS: amLODIPine 5 MG TAB PO SCH (10:00)
[2022-02-15] MEDS: predniSONE 5 MG TAB PO SCH (10:00)
[2022-02-15] MEDS: LISINOPRIL 20 MG TAB PO SCH (10:00)
[2022-02-15] MEDS: APIXABAN 5 MG TAB PO SCH ×2 (10:00→21:28)
[2022-02-15] MEDS: AZITHROMYCIN 250 MG TAB PO SCH (10:00)
[2022-02-15] MEDS ORDERED: hydrALAZINE 20 MG/1 ML INJ IV PRN (12:00)
[2022-02-15] MEDS: MORPHINE 2 MG/1 ML INJ IV PRN (12:51)
[2022-02-15] MEDS ORDERED: METOCLOPRAMIDE 10 MG/2 ML INJ IV ONE (13:00)
--- NOTE | 2022-02-15 16:50 | Progress Note ---
Assessment and Plan 71-year-old female intractable nausea and some vomiting that may be due to biliary dyskinesia. Patient is afebrile and stable. 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 At this time patient is focused and prioritizing a biopsy of a mass on her spine looking for metastatic disease from her lung cancer that is scheduled for next week. Patient is trying to avoid cholecystectomy at this time if possible. We will try scheduled Reglan and breakthrough Phenergan to help with her symptoms. If patient is able to tolerate liquids can be discharged on oral antiemetic therapy. We will continue to follow. Subjective Date of service: 02/15/22 Narrative: Patient says that her nausea has been worse today compared to yesterday. She is unable to keep down any liquids. Discussed her HIDA scan results with her and explained biliary dyskinesia. Patient does not complain of any more pain but do es want the nausea to improve. Objective Vital Signs - 12hr 02/15/22 02/15/22 02/15/22 06:33 08:11 09:26 Temperature 99.7 F H Pulse Rate 92 H 94 H Respiratory 14 Rate Blood Pressure 173/91 175/94 O2 Sat by Pulse 99 98 Oximetry - General physical appearance no distress, no pain, cathetic - Eyes PERRL - ENT no hearing loss - Respiratory normal expansion, normal respiratory effort - Abdomen soft, not tender, not distended - Labs 02/15/22 07:00 02/15/22 07:00 Diabetes panel 02/14/22 02/15/22 Range/Units 18:38 07:00 Sodium 136 L (137-145) mmol/L Potassium 5.0 (3.6-5.0) mmol/L Chloride 99.2 (98-107) mmol/L Carbon Dioxide 21 L (22-30) mmol/L BUN 43 H (7-17) mg/dL Creatinine 1.9 H D 1.7 H (0.6-1.2) mg/dL Glucose 110 H (65-100) mg/dL Calcium 9.6 (8.4-10.2) mg/dL Calcium panel 02/15/22 Range/Units 07:00 Calcium 9.6 (8.4-10.2) mg/dL Pituitary panel 02/14/22 02/15/22 Range/Units 18:38 07:00 Sodium 136 L (137-145) mmol/L Potassium 5.0 (3.6-5.0) mmol/L Chloride 99.2 (98-107) mmol/L Carbon Dioxide 21 L (22-30) mmol/L BUN 43 H (7-17) mg/dL Creatinine 1.9 H D 1.7 H (0.6-1.2) mg/dL Glucose 110 H (65-100) mg/dL Calcium 9.6 (8.4-10.2) mg/dL Adrenal panel 02/14/22 02/15/22 Range/Units 18:38 07:00 Sodium 136 L (137-145) mmol/L Potassium 5.0 (3.6-5.0) mmol/L Chloride 99.2 (98-107) mmol/L Carbon Dioxide 21 L (22-30) mmol/L BUN 43 H (7-17) mg/dL Creatinine 1.9 H D 1.7 H (0.6-1.2) mg/dL Glucose 110 H (65-100) mg/dL Calcium 9.6 (8.4-10.2) mg/dL
[2022-02-15] MEDS ORDERED: PROMETHAZINE 12.5 MG/10 ML ORAL LIQD PO PRN (19:54)
[2022-02-15] MEDS: METOCLOPRAMIDE 10 MG/2 ML INJ IV SCH (21:27)
[2022-02-16] MEDS: INSULIN LISPRO 100 UNIT/ML SUB-Q SCH ×3 (01:16→12:30)
[2022-02-16] MEDS: SODIUM CHLORIDE 0.45% 1000 ML 1,000 ML IV SCH (01:19)
[2022-02-16 04:44] LABS: Hematocrit 32.5 % (30.3-42.9); Hemoglobin 10.3 gm/dl (10.1-14.3); Mean Corpuscular HGB Conc 32 % (30-34); Mean Corpuscular Volume 88 fl (79-97); Platelet Count 185 K/mm3 (140-440); Red Blood Count 3.68 M/mm3 (3.65-5.03)
[2022-02-16 04:58] LABS: Calcium 9.6 mg/dL (8.4-10.2)
[2022-02-16] MEDS: cefTRIAXone/NS 2 GM/100 ML 2 GM/100 ML BAG IV SCH (05:22)
[2022-02-16] MEDS: LEVOTHYROXINE 50 MCG TAB PO SCH (05:22)
[2022-02-16] MEDS: hydrALAZINE 25 MG TAB PO SCH ×4 (05:22→21:14)
[2022-02-16] MEDS: METOCLOPRAMIDE 10 MG/2 ML INJ IV SCH (07:30)
[2022-02-16] MEDS: MORPHINE 2 MG/1 ML INJ IV PRN (07:53)
[2022-02-16] MEDS: buPROPion XL 150 MG TAB PO SCH (11:54)
[2022-02-16] MEDS: APIXABAN 5 MG TAB PO SCH ×2 (11:55→21:09)
[2022-02-16] MEDS: HYDROXYCHLOROQUINE 200 MG TAB PO SCH ×2 (11:55→21:09)
[2022-02-16] MEDS: LISINOPRIL 20 MG TAB PO SCH (11:56)
[2022-02-16] MEDS: amLODIPine 5 MG TAB PO SCH (11:56)
[2022-02-16] MEDS: FAMOTIDINE 20 MG/2 ML INJ IV SCH (11:56)
[2022-02-16] MEDS: predniSONE 5 MG TAB PO SCH (14:00)
[2022-02-16] MEDS: METOPROLOL TARTRATE 50 MG TAB PO SCH (14:00)
[2022-02-16] MEDS: AZITHROMYCIN 250 MG TAB PO SCH (14:00)
[2022-02-16] MEDS ORDERED: METOCLOPRAMIDE 10 MG/2 ML INJ IV SCH (14:00)
--- NOTE | 2022-02-16 14:53 | Progress Note ---
Hospitalist Physical - Constitutional Vitals: Temp Pulse Resp BP Pulse Ox 98.7 F 105 H 18 164/84 91 02/16/22 07:31 02/16/22 07:31 02/16/22 07:31 02/16/22 07:31 02/16/22 10:00 General appearance: Present: no acute distress, well-nourished HEART Score - HEART Score Troponin: Troponin T 0.019 ng/mL (0.00-0.029) 02/13/22 18:16 Results - Labs CBC & Chem 7: 02/16/22 04:12 02/16/22 04:12 Labs: Laboratory Last Values WBC 7.6 K/mm3 (4.5-11.0) 02/16/22 04:12 RBC 3.68 M/mm3 (3.65-5.03) 02/16/22 04:12 Hgb 10.3 gm/dl (10.1-14.3) 02/16/22 04:12 Hct 32.5 % (30.3-42.9) 02/16/22 04:12 MCV 88 fl (79-97) 02/16/22 04:12 MCH 28 pg (28-32) 02/16/22 04:12 MCHC 32 % (30-34) 02/16/22 04:12 RDW 17.0 % (13.2-15.2) H 02/16/22 04:12 Plt Count 185 K/mm3 (140-440) 02/16/22 04:12 Lymph % (Auto) 8.2 % (13.4-35.0) L 02/15/22 07:00 [place] % (Auto) 6.7 % (0.0-7.3) 02/15/22 07:00 Eos % (Auto) 1.0 % (0.0-4.3) 02/15/22 07:00 Baso % (Auto) 0.3 % (0.0-1.8) 02/15/22 07:00 Lymph # (Auto) 0.6 K/mm3 (1.2-5.4) L 02/15/22 07:00 [place] # (Auto) 0.5 K/mm3 (0.0-0.8) 02/15/22 07:00 Eos # (Auto) 0.1 K/mm3 (0.0-0.4) 02/15/22 07:00 Baso # (Auto) 0.0 K/mm3 (0.0-0.1) 02/15/22 07:00 Seg Neutrophils % 83.8 % (40.0-70.0) H 02/15/22 07:00 Seg Neutrophils # 6.4 K/mm3 (1.8-7.7) 02/15/22 07:00 PT 15.1 Sec. (12.2-14.9) H 02/14/22 18:38 INR 1.07 (0.87-1.13) 02/14/22 18:38 APTT 31.3 Sec. (24.2-36.6) 02/14/22 18:38 Sodium 133 mmol/L (137-145) L 02/16/22 04:12 Potassium 3.7 mmol/L (3.6-5.0) D 02/16/22 04:12 Chloride 97.9 mmol/L (98-107) L 02/16/22 04:12 Carbon Dioxide 20 mmol/L (22-30) L 02/16/22 04:12 Anion Gap 19 mmol/L 02/16/22 04:12 BUN 30 mg/dL (7-17) H 02/16/22 04:12 Creatinine 1.3 mg/dL (0.6-1.2) H 02/16/22 04:12 Estimated GFR 49 ml/min 02/16/22 04:12 BUN/Creatinine Ratio 23 % 02/16/22 04:12 Glucose 89 mg/dL (65-100) 02/16/22 04:12 POC Glucose 91 mg/dL (70-105) 02/16/22 11:55 Calcium 9.6 mg/dL (8.4-10.2) 02/16/22 04:12 Phosphorus 3.40 mg/dL (2.5-4.5) 02/16/22 04:12 Magnesium 1.20 mg/dL (1.7-2.3) L 02/16/22 04:12 Total Bilirubin 0.50 mg/dL (0.1-1.2) 02/13/22 18:16 AST 36 units/L (5-40) 02/13/22 18:16 ALT 43 units/L (7-56) 02/13/22 18:16 Alkaline Phosphatase 292 units/L (35-129) H 02/13/22 18:16 Troponin T 0.019 ng/mL (0.00-0.029) 02/13/22 18:16 Total Protein 8.1 g/dL (6.3-8.2) 02/13/22 18:16 Albumin 3.6 g/dL (3.9-5) L 02/13/22 18:16 Albumin/Globulin Ratio 0.8 % 02/13/22 18:16 Lipase 52 units/L (13-60) 02/13/22 18:16 Urine Color Yellow (Yellow) 02/14/22 08:27 Urine Turbidity Clear (Clear) 02/14/22 08:27 Urine pH 6.0 (5.0-7.0) 02/14/22 08:27 Ur Specific [place] 1.050 (1.003-1.030) H 02/14/22 08:27 Urine Protein 30 mg/dl mg/dL (Negative) 02/14/22 08:27 Urine Glucose (UA) Neg mg/dL (Negative) 02/14/22 08:27 Urine Ketones Tr mg/dL (Negative) 02/14/22 08:27 Urine Blood Neg (Negative) 02/14/22 08:27 Urine Nitrite Neg (Negative) 02/14/22 08:27 Urine Bilirubin Neg (Negative) 02/14/22 08:27 Urine Urobilinogen 2.0 mg/dL (<2.0) 02/14/22 08:27 Ur Leukocyte Esterase Neg (Negative) 02/14/22 08:27 Urine WBC (Auto) 2.0 /HPF (0.0-6.0) 02/14/22 08:27 Urine RBC (Auto) 2.0 /HPF (0.0-6.0) 02/14/22 08:27 U Epithel Cells (Auto) 2.0 /HPF (0-13.0) 02/14/22 08:27 Jamil/IV: Voiding Method Toilet Active Medications - Current Medications Current Medications: Generic Name Dose Route Start Last Admin Trade Name Freq PRN Reason Stop Dose Admin Acetaminophen 650 mg 02/14/22 03:29 Acetaminophen 325 Mg Tab PO Q4H PRN Pain MILD(1-3)/Fever >100.5/DEVLIN Amlodipine Besylate 5 mg 02/14/22 16:00 02/16/22 11:56 Amlodipine 5 Mg Tab PO 5 mg DAILY MINISTERIO Administration Apixaban 5 mg 02/14/22 22:00 02/16/22 11:55 Apixaban 5 Mg Tab PO 5 mg Q12HR MINISTERIO Administration Protocol Atorvastatin Calcium 10 mg 02/14/22 22:00 02/15/22 21:28 Atorvastatin 10 Mg Tab PO 10 mg QHS MINISTERIO Administration Azithromycin 500 mg 02/14/22 10:00 02/15/22 10:00 Azithromycin 250 Mg Tab PO 02/18/22 10:01 Not Given QDAY MINISTERIO Protocol Bupropion HCl 150 mg 02/15/22 10:00 02/16/22 11:54 Bupropion Xl 150 Mg Tab PO 150 mg QDAY MINISTERIO Administration Dextrose 50 ml 02/14/22 03:29 Dextrose 50% In Water (25gm) 50 Ml Syringe IV Q30MIN PRN Hypoglycemia Protocol Famotidine 20 mg 02/14/22 10:00 02/16/22 11:56 Famotidine 20 Mg/2 Ml Inj IV 20 mg DAILY MINISTERIO Administration Hydralazine HCl 25 mg 02/14/22 06:00 02/16/22 05:22 Hydralazine 25 Mg Tab PO 25 mg Q8HR MINISTERIO Administration Hydralazine HCl 10 mg 02/15/22 12:00 Hydralazine 20 Mg/1 Ml Inj IV Q4HR PRN Hypertension Hydromorphone HCl 0.5 mg 02/14/22 03:29 Hydromorphone 1 Mg/1 Ml Inj IV Q3H PRN Pain , Severe (7-10) Hydroxychloroquine Sulfate 200 mg 02/14/22 10:00 02/16/22 11:55 Hydroxychloroquine 200 Mg Tab PO 200 mg BID MINISTERIO Administration Sodium Chloride 1,000 mls @ 100 mls/hr 02/14/22 04:00 02/16/22 01:19 Nacl 0.45% 1000 Ml IV 100 mls/hr DIRECT MINISTERIO Administration Ceftriaxone Sodium 2 gm in 100 mls @ 200 mls/hr 02/14/22 06:00 02/16/22 05:22 Rocephin/Ns 2 Gm/100 Ml IV 02/18/22 06:29 200 mls/hr Q24H MINISTERIO Administration Protocol Magnesium Sulfate 4 gm in 100 mls @ 25 mls/hr 02/16/22 15:31 Magnesium Sulfate 4gm/100ml IV 02/16/22 19:30 ONCE ONE Insulin Human Lispro 0 unit 02/14/22 06:00 02/16/22 07:10 Insulin Lispro 100 Unit/Ml SUB-Q Not Given Q6HR [facility] Protocol Levothyroxine Sodium 50 mcg 02/15/22 06:00 02/16/22 05:22 Levothyroxine 50 Mcg Tab PO 50 mcg DAILY@0600 [facility] Administration Lisinopril 20 mg 02/14/22 10:00 02/16/22 11:56 Lisinopril 20 Mg Tab PO 20 mg QDAY [facility] Administration Methocarbamol 500 mg 02/14/22 10:00 02/15/22 21:28 Methocarbamol 500 Mg Tab PO 500 mg BID [facility] Administration Metoclopramide HCl 10 mg 02/16/22 14:00 Metoclopramide 10 Mg/2 Ml Inj IV Q6H [facility] Metoprolol Tartrate 50 mg 02/14/22 10:00 02/15/22 10:00 Metoprolol Tartrate 50 Mg Tab PO Not Given DAILY [facility] Morphine Sulfate 2 mg 02/14/22 03:29 02/16/22 07:53 Morphine 2 Mg/1 Ml Inj IV 2 mg Q4H PRN Administration Pain, Moderate (4-6) Ondansetron HCl 4 mg 02/14/22 15:28 02/15/22 08:09 Ondansetron 4 Mg/2 Ml Inj IV 4 mg Q4H PRN Administration Nausea And Vomiting Prednisone 5 mg 02/14/22 10:00 02/15/22 10:00 Prednisone 5 Mg Tab PO Not Given DAILY [facility] Promethazine HCl 12.5 mg 02/15/22 19:54 Promethazine 12.5 Mg/10 Ml Oral Liqd PO Q6H PRN Nausea And Vomiting Sodium Chloride 10 ml 02/14/22 10:00 02/15/22 21:28 Sodium Chloride 0.9% 10 Ml Flush Syringe IV 10 ml BID [facility] Administration Sodium Chloride 10 ml 02/14/22 03:29 Sodium Chloride 0.9% 10 Ml Flush Syringe IV PRN PRN LINE FLUSH Nutrition/Malnutrition Assess - Dietary Evaluation Nutrition/Malnutrition Findings: Nutrition Notes Start: 02/14/22 15:21 Freq: Status: Active Protocol: Document 02/14/22 15:21 FLOYD (Rec: 02/14/22 15:35 FLOYD [id number]) Nutrition Notes Need for Assessment generated from: MD Order,Education Initial or Follow up Brief Note Current Diagnosis COPD,Diabetes,Hypertension Other Pertinent Diagnosis N/V/Abdominal Pain, Pulmonary infiltrates, Sarcoidosis. Current Diet Clear Liquids Diet (from D ). 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 Weight Status Appropriate Subjective/Other Information RD consult for nutrition education. No reports available on Pt's PO intake of meals at the time , will assess at F/U. Pt is on Nasal Cannula, O2 saturation @ 96%, according to Physical Assessment History notes. Pt still in critical condition , not a candidate for Nutrition Education at the time, will assess feasibility on F/U. Percent of energy/protein needs met: Prescribed Clear Liquids Diet provides for energy/protein needs (590 Kcal/16 g) during LOS Nutrition Intervention Follow-Up By: 02/21/22 Additional Comments Nutrition education will be provided on F/U, if feasible. Continue monitoring food tolerance, %PO intake of meals , and BM.
[2022-02-16] MEDS ORDERED: MAGNESIUM SULFATE 4 GM/100 ML BAG IV ONE (15:31)
--- NOTE | 2022-02-16 15:31 | Discharge Summary ---
Providers - Providers Date of Admission: 02/14/22 03:29 Date of discharge: 02/16/22 Attending physician: SARAI ROBERT 02/14/22 00:35 Consult to Physician [CONS] Stat Comment: Dr. Santos spoke with Dr. Hager @ 0020 Consulting Provider: FAIZAN HAGER Physician Instructions: Reason For Exam: Gallbladder 02/14/22 03:29 Consult to Dietitian/Nutrition [CONS] Routine Physician Instructions: Reason For Exam: Reason for Consult: Diet education Primary care physician: SENIOR ADULTS DIRECTOR Hospitalization Condition: Stable Hospital course: Hepatobiliary scan; biliary obstruction none gallbladder ejection fraction below normal; 12[normal more than 35%] --Hypomagnesemia; 1.2 Replenished with 4 g of magnesium sulfate Patient will check her electrolytes at PMDs office in 1 week -- Acute kidney injury; vasomotor nephropathy Gentle hydration, monitor renal function Avoid nephrotoxins -- epigastric pain Current Visit: Yes Status: Acute Admit the patient to the medical telemetry. Famotidine 20 mg IV every 12 hours. Reglan 10 mg IV x1 dose. Morphine 2 mg IV every 4 hours as needed. Consult surgery for evaluation of cholelithiasis. Recheck CBC CMP in the morning --Biliary dyskinesia; Intractable nausea vomiting --cholelithiasis; Current Visit: Yes Status: Acute Surgery evaluated the patient, recommended HIDA scan And possible cholecystectomy, Continue n.p.o. status, supportive care --History of lung cancer/right hilar mass; Received chemotherapy and radiation Patient is being evaluated for metastatic disease Had PET scan recently that showed lesions of lumbar spine pending biopsy next week. Pulmonary consulted --GERD; Famotidine 20 mg IV daily for GI prophylaxis. --Diabetes mellitus Current Visit: No Status: Acute Humalog sliding scale with moderate dose coverage. We continue the home medication. Diabetic education --History of sarcoidosis Current Visit: No Status: Acute Stable. We will continue the home medication. We will also consult pulmonary for evaluation --Hypertension Current Visit: No Status: Acute Hydralazine 10 mg IV every 6 hours as needed. Hydralazine 25 mg p.o. every 8 hours. Lisinopril 20 mg p.o. daily --DVT prophylaxis Current Visit: No Status: Acute SCD for DVT prophylaxis. Patient is a full code We will closely monitor the patient and adjust management as needed Director Of In Service Education recommendations noted and appreciated Plan of care reviewed with the patient and her at the bedside I also discussed with patient's nurse We will closely monitor the patient and adjust the management as needed Cleared by all the consultants patient is stable for discharge Disposition: 01 HOME / SELF CARE / HOMELESS Core Measure Documentation - Palliative Care Palliative Care/ Comfort Measures: Not Applicable - Core Measures Any of the following diagnoses?: none Exam - Constitutional Vitals: Temp Pulse Resp BP Pulse Ox 98.7 F 105 H 18 164/84 91 02/16/22 07:31 02/16/22 07:31 02/16/22 07:31 02/16/22 07:31 02/16/22 10:00 General appearance: Present: no acute distress, well-nourished - EENT Eyes: Present: PERRL, EOM intact - Neck Neck: Present: supple, normal ROM - Respiratory Respiratory effort: normal Respiratory: bilateral: diminished, negative: rales, rhonchi, wheezing - Cardiovascular Rhythm: regular Heart Sounds: Present: S1 & S2 - Extremities Extremities: no ischemia, No edema - Abdominal General gastrointestinal: Present: soft, non-tender, non-distended, normal bowel sounds - Integumentary Integumentary: Present: clear, warm - Musculoskeletal Musculoskeletal: strength equal bilaterally - Psychiatric Psychiatric: appropriate mood/affect, cooperative - Neurologic Neurologic: moves all extremities Plan Activity: advance as tolerated, fall precautions Diet: advance as tolerated, other (Full liquid diet) Additional Instructions: If you have worsening symptoms contact MD or go to the nearest emergency room as needed. Advised to see surgeon. when you agree and want cholecystectomy[gallbladder surgery]. Advised to follow a [facility] primary care physician, oncologist, cap machine operator per schedule. Patient received 4 g of IV magnesium sulfate prior to discharge, patient will follow with primary care physician per schedule and check her electrolytes Follow up with: FAIZAN HAGER MD [Staff Physician] - 7 Days PRIMARY CARE, [Primary Care Provider] - 3-5 Days Prescriptions: hydrALAZINE [Apresoline TAB] 25 mg PO Q8HR #90 tablet Promethazine [Phenergan SUPPOS] 12.5 mg [place] Q8H PRN #21 supp.rect PRN Reason: Nausea Metoclopramide [Reglan] 10 mg PO ACHS PRN #30 tablet PRN Reason: Nausea And Vomiting
--- NOTE | 2022-02-16 16:01 | Progress Note ---
Assessment and Plan 71-year-old female intractable nausea and some vomiting that may be due to biliary dyskinesia. Patient is afebrile and stable. 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 At this time patient is focused and prioritizing a biopsy of a mass on her spine looking for metastatic disease from her lung cancer that is scheduled for next week. Patient is trying to avoid cholecystectomy at this time if possible. Scheduled reglan with breakthrough phenergan seems to be controlling her symptoms. since pt is refusing surgery at this time recommend treating her sym ptoms. She can follow up in the office for elective cholecystectomy if she desires. Subjective Date of service: 02/16/22 Narrative: No acute events overnight. Pt says that she feels much better and has less nausea than yesterday. she is tolerating liquids with the reglan scheduled. Objective Vital Signs - 12hr 02/16/22 02/16/22 02/16/22 05:45 07:31 08:28 Temperature 98.4 F 98.7 F Pulse Rate 102 H 105 H Respiratory 20 18 Rate Blood Pressure 190/87 Blood Pressure 164/84 [Right] O2 Sat by Pulse 92 95 95 Oximetry 02/16/22 10:00 Temperature Pulse Rate Respiratory Rate Blood Pressure Blood Pressure [Right] O2 Sat by Pulse 91 Oximetry - General physical appearance no distress, no pain - ENT no hearing loss - Respiratory normal expansion, normal respiratory effort - Abdomen soft, not tender - Labs 02/16/22 04:12 02/16/22 04:12 Diabetes panel 02/16/22 Range/Units 04:12 Sodium 133 L (137-145) mmol/L Potassium 3.7 D (3.6-5.0) mmol/L Chloride 97.9 L (98-107) mmol/L Carbon Dioxide 20 L (22-30) mmol/L BUN 30 H (7-17) mg/dL Creatinine 1.3 H (0.6-1.2) mg/dL Glucose 89 (65-100) mg/dL Calcium 9.6 (8.4-10.2) mg/dL Calcium panel 02/16/22 Range/Units 04:12 Calcium 9.6 (8.4-10.2) mg/dL Phosphorus 3.40 (2.5-4.5) mg/dL Pituitary panel 02/16/22 Range/Units 04:12 Sodium 133 L (137-145) mmol/L Potassium 3.7 D (3.6-5.0) mmol/L Chloride 97.9 L (98-107) mmol/L Carbon Dioxide 20 L (22-30) mmol/L BUN 30 H (7-17) mg/dL Creatinine 1.3 H (0.6-1.2) mg/dL Glucose 89 (65-100) mg/dL Calcium 9.6 (8.4-10.2) mg/dL Adrenal panel 02/16/22 Range/Units 04:12 Sodium 133 L (137-145) mmol/L Potassium 3.7 D (3.6-5.0) mmol/L Chloride 97.9 L (98-107) mmol/L Carbon Dioxide 20 L (22-30) mmol/L BUN 30 H (7-17) mg/dL Creatinine 1.3 H (0.6-1.2) mg/dL Glucose 89 (65-100) mg/dL Calcium 9.6 (8.4-10.2) mg/dL
[2022-02-16 21:40] VITALS: BP 105/60
== END 2022-02-16 21:45 | disposition home or self-care (01) | DRG 444 ==
LOC: ED 16:26 → 3A 02-14 03:29
PROVIDERS: ADMIT Hospitalist; ATTEND Internal Medicine
DX: K80.20 Calculus of gallbladder without cholecystitis without obstruction (principal); N17.0 Acute kidney failure with tubular necrosis; D86.9 Sarcoidosis, unspecified; R91.8 Other nonspecific abnormal finding of lung field; I10 Essential (primary) hypertension; E11.9 Type 2 diabetes mellitus without complications; J45.909 Unspecified asthma, uncomplicated; Z90.710 Acquired absence of both cervix and uterus; J44.9 Chronic obstructive pulmonary disease, unspecified; K21.9 Gastro-esophageal reflux disease without esophagitis; Z85.118 Personal history of other malignant neoplasm of bronchus and lung; E83.42 Hypomagnesemia; K82.8 Other specified diseases of gallbladder
CPT/HCPCS: 36415; 74177; 76705; 78227; 80048; 80053; 81001; 82565; 82962; 83690; 83735; 84100; 84484; 85025; 85027; 85610; 85730; 93005; 94760; G0378; J3490; A9537; J0360; J0696; J2270; J2405; J2765; J2805; J3475; J7030; J7512; Q9967

== ENCOUNTER 2022-04-07 10:19 | Emergency (ER) | payer MEDICARE ==
--- NOTE | 2022-04-07 11:24 | Emergency Department Report ---
ED CPR HPI - General Chief Complaint: Cardiac Arrest/CPR Stated Complaint: CARDIAC ARREST Time Seen by Provider: 04/07/22 10:19 Source: EMS Mode of arrival: Stretcher Limitations: Other - History of Present Illness Initial Comments: 71-year-old female with a past medical history of breast cancer currently in remission, asthma, diabetes, hypertension, chronic back pain and sarcoidosis presents to the hospital cardiopulmonary arrest. Last seen alive at 5 AM. Found by unresponsive. First unit at the scene at 9:50 AM. Patient in asystole. Power Brake Operator arrival at 9:54 AM. Patient was intubated with Damir airway, received epinephrine x3, sodium bicarb x1, and had a low glucose with initiation of D5 normal saline. Despite resuscitation efforts patient remains in asystole upon arrival. Resuscitation efforts continued. Patient presents with a Damir airway, IO, and 20-gauge AC line MD Complaint: found unresponsive Place: home - Related Data Home Medications Medication Instructions Recorded Confirmed Last Taken Citalopram [Celexa] 20 mg PO DAILY 03/10/14 02/14/22 10/22/19 Prednisone [predniSONE ([place]) ER 5 mg PO DAILY 03/10/14 02/14/22 Unknown TAB] Apixaban [Eliquis] 5 mg PO BID 02/14/22 02/14/22 Unknown Ascorbic Acid [Vitamin C] 1,000 mg PO QDAY 02/14/22 02/14/22 Unknown AtorvaSTATin 10 mg PO QHS 02/14/22 02/14/22 Unknown Cholecalciferol (Vitamin D3) 2,000 unit PO QDAY 02/14/22 02/14/22 Unknown [Vitamin D3 2,000 UNIT CHEW TAB] Fluticasone Propion/Salmeterol 1 each IH QDAY 02/14/22 02/14/22 Unknown [Fluticasone-Salmeterol 100-50] HYDROcodone/APAP 10-325 [[place] 1 each PO BID PRN 02/14/22 02/14/22 Unknown 10-325 mg TAB] Levothyroxine [Synthroid] 50 mcg PO QAM 02/14/22 02/14/22 Unknown Lidocaine/Prilocaine 5 gm TP QDAY PRN 02/14/22 02/14/22 Unknown [Lidocaine-Prilocaine Cream] amLODIPine 5 mg PO DAILY 02/14/22 02/14/22 Unknown buPROPion HCL [Bupropion Xl] 150 mg PO QDAY 02/14/22 02/14/22 Unknown Previous Rx's Medication Instructions Recorded Last Taken Type Omeprazole Magnesium [PriLOSEC Otc] 20 mg PO BID #60 tab 03/11/14 10/22/19 Rx Ondansetron [Zofran ODT TAB] 4 mg PO Q8HR PRN #20 tab.rapdis 04/18/19 Unknown Rx Metoclopramide [Reglan] 10 mg PO ACHS PRN #30 tablet 02/16/22 Unknown Rx Promethazine [Phenergan SUPPOS] 12.5 mg IN Q8H PRN #21 supp.rect 02/16/22 Unknown Rx hydrALAZINE [Apresoline TAB] 25 mg PO Q8HR #90 tablet 02/16/22 Unknown Rx Allergies Allergy/AdvReac Type Severity Reaction Status Date / Time No Known Allergies Allergy Verified 02/14/22 12:24 ED Review of Systems ROS: Stated complaint: CARDIAC ARREST Other details as noted in HPI Comment: Unobtainable due to pts medical conditions ED Past Medical Hx - Past Medical History Previous Medical History?: Yes Hx Hypertension: Yes Hx Heart Attack/AMI: No Hx Congestive Heart Failure: No Hx Diabetes: Yes Hx Deep Vein Thrombosis: No Hx Pulmonary Embolism: No Hx Liver Disease: No Hx Renal Disease: No Hx of Cancer: Yes (breast) Hx Sickle Cell Disease: No Hx Arthritis: No Hx Seizures: No Hx Kidney Stones: No Hx Asthma: Yes Hx COPD: No Hx Tuberculosis: No Hx Dementia: No Hx HIV: No Additional medical history: Sarcoidosis; Degenerative Disk Disease, gallbladder - Surgical History Hx Coronary Stent: No Hx Open Heart Surgery: No Hx Pacemaker: No Hx Internal Defibrillator: No Hx Cholecystectomy: No Hx Appendectomy: No Hx Breast Surgery: No Additional Surgical History: Hysterectomy, left hip surgery - Social History Smoking Status: Never Smoker - Medications Home Medications: Home Medications Medication Instructions Recorded Confirmed Last Taken Type Citalopram [Celexa] 20 mg PO DAILY 03/10/14 02/14/22 10/22/19 History Prednisone [predniSONE ([place]) ER 5 mg PO DAILY 03/10/14 02/14/22 Unknown History TAB] Omeprazole Magnesium [PriLOSEC Otc] 20 mg PO BID #60 tab 03/11/14 02/14/2210/22/19 Rx Ondansetron [Zofran ODT TAB] 4 mg PO Q8HR PRN #20 tab.rapdis 04/18/19 02/14/22 Unknown Rx Apixaban [Eliquis] 5 mg PO BID 02/14/22 02/14/22 Unknown History Ascorbic Acid [Vitamin C] 1,000 mg PO QDAY 02/14/22 02/14/22 Unknown History AtorvaSTATin 10 mg PO QHS 02/14/22 02/14/22 Unknown History Cholecalciferol (Vitamin D3) 2,000 unit PO QDAY 02/14/22 02/14/22 Unknown History [Vitamin D3 2,000 UNIT CHEW TAB] Fluticasone Propion/Salmeterol 1 each IH QDAY 02/14/22 02/14/22 Unknown History [Fluticasone-Salmeterol 100-50] HYDROcodone/APAP 10-325 [[place] 1 each PO BID PRN 02/14/22 02/14/22 Unknown History 10-325 mg TAB] Levothyroxine [Synthroid] 50 mcg PO QAM 02/14/22 02/14/22 Unknown History Lidocaine/Prilocaine 5 gm TP QDAY PRN 02/14/22 02/14/22 Unknown History [Lidocaine-Prilocaine Cream] amLODIPine 5 mg PO DAILY 02/14/22 02/14/22 Unknown History buPROPion HCL [Bupropion Xl] 150 mg PO QDAY 02/14/22 02/14/22 Unknown History Metoclopramide [Reglan] 10 mg PO ACHS PRN #30 tablet 02/16/22 Unknown Rx Promethazine [Phenergan SUPPOS] 12.5 mg IN Q8H PRN #21 supp.rect 02/16/22 Unknown Rx hydrALAZINE [Apresoline TAB] 25 mg PO Q8HR #90 tablet 02/16/22 Unknown Rx ED Physical Exam - General Limitations: Other - Other Other exam information: General: Unresponsive Head: Atraumatic Eyes: Pupils fixed and ENT: Intubated Damir airway Neck: Normal appearance Chest: No spontaneous respirations, clear to auscultation CV: Regular rate and rhythm Abdomen: Soft, nondistended Back: Normal inspection Extremity: Normal inspection Neuro: GCS equals 3 Psych: No response Skin: No rash, warm to touch ED Medical Decision Making - Medical Decision Making 71-year-old female presents to the hospital in cardiopulmonary arrest. Resuscitation efforts continued upon ED arrival. Patient was still in asystole upon ED arrival. She received 2 doses of epinephrine, 1 amp of D50 without improvement. Time of 10:24 AM. present in the ED and informed of patient's Critical Care Time: No Critical care attestation.: If time is entered above; I have spent that time in minutes in the direct care of this critically ill patient, excluding procedure time. ED Disposition Clinical Impression: Cardiopulmonary arrest Disposition: 20 Is pt being admited?: No Condition: Critical Time of Disposition: 11:45
== END 2022-04-07 18:00 ==
LOC: ED 10:19
DX: I46.9 Cardiac arrest, cause unspecified (principal); I10 Essential (primary) hypertension; E11.9 Type 2 diabetes mellitus without complications
CPT/HCPCS: 92950; 99285